=== PATIENT | female | born 1960 | race Caucasian/White ===

== ENCOUNTER 2021-05-12 09:21 | Emergency (ER) | payer MEDICAID, SELFPAY ==
[2021-05-12 09:34] VITALS: BP 139/73; PULSE 79; RESP 22; TEMP 36.9; O2SAT 95; BMI 43.5
--- NOTE | 2021-05-12 09:59 | PC.NURSE ---
IFEOMA JAVIER suggested pt go to the ER for her chest pains and soa with pts heart hx. pt declines and states she does not want treated for that.
--- NOTE | 2021-05-12 09:59 | HMH.EDUTC ---
[facility] [place] Clinical Impression: Bronchitis Sinusitis Qualifiers: Sinusitis location: unspecified location Chronicity: unspecified Qualified Code(s): J32.9 - Chronic sinusitis, unspecified Disposition: Home, Self-Care Condition on Discharge: Good Instructions: Sinusitis, Acute Bronchitis, DI for Sinusitis, DI for COVID-19 (Suspected or Confirmed ), Preventing the Spread of Coronavirus Discharge Instructions Additional Instructions: *Monitor Temp, Over the counter Motrin or Tylenol as directed/as needed Tylenol every 4 hours and Motrin every 6 hours (as long as your family doctor has told you that you can take it) for fever or pain. and straight to ER if unable to lower temp less than 101.0 after medication given *Warm salt water gargles may help to soothe the throat *Throat Lozenges *Warm fluids like tea with honey may help to soothe the throat *Sleep elevated *Humidifier/Vaporizer Follow up IMMEDIATELY for new or worsening symptoms or no Noticeable improvement over the next 48-72 hours. 911 for difficulty breathing or swallowing You were tested for today for COVID19 your test result should be back in the next 24-48 hours, you may call to the [facility] to see if your test results are back in the next 48 hours [phone] [facility] hours are 9am-9pm You was given a handout with instructions for Self Quarantine and Self isolation for while you wait on test results and what to do if they are positive If you are positive the Health Dept will be contacting you also Make sure to take your Vitamins Vit. C Vit D and Zinc if you can take them Prescriptions: Doxycycline Monohydrate [Doxycycline [place] 100mg Tab] 100 mg PO Q12 7 Days #14 tab Transmission Status: Received by [id number] Referrals: Provider,Referral, [Primary Care Provider] - As needed Time of Disposition: 10:21 Medical Decision Making - Sharad Inquiry Pt receiving controlled substance: No Sharad was queried for this patient: No Vital Signs: 05/12/21 09:34 05/12/21 10:27 Temperature 98.4 F 98.4 F Temperature Source Oral Pulse Rate 79 Pulse Rate [Left] 79 Respiratory Rate 22 16 Blood Pressure 139/73 Blood Pressure [Right Arm] 139/73 Blood Pressure Mean [Right Arm] 95 02 Sat by Pulse Oximetry 95 Medical Decision Narrative: Discussed with patient about having pain in her chest area and feeling dizzy 3 days ago and recommended transfer to the ED for further work up and evaluation and patient declined states that pain only happened when she took a deep breath and didnt feel like her heart Patient educated on risks and even and patient still declined transfer and CX[place] [facility] [place] - General Stated complaint: covid symptoms Time Seen by Provider: 05/12/21 09:59 Mode of Arrival: Ambulatory Source of Information: Patient Limitations: No Limitations Description of Symptoms (Recalled from Triage Doc. by RN): pt states she got up a few days ago and became dizzy and had chest pain. pt c/o FERNANDEZ, cough, body aches, sinus pressure, nausea and soa ever since. pt states she is having pressure in her upper chest when she breathes and in her lungs. HEENT Symptoms (Recalled from RN notes): Yes (sinus pressure and FERNANDEZ) Resp Symptoms (Recalled from RN notes): Yes (cough, lung pain and soa) Skin Symptoms (Recalled from RN notes): No MS Symptoms (Recalled from RN notes): No Functional Status (Recalled from RN notes): myalgia - History of Present Illness Provider Complaint: Patient states that she had some pain in her chest a couple days ago when she took a deep breath and felt a little dizzy State that since then she has started to have headache, cough, sinus congestion and pressure and felt SOA at times after coughing States that she was concerned with COVID and wanted to get tested - Related Data Previous Rx's Medication Instructions Recorded Doxycycline Monohydrate 100 mg PO Q12 7 Days #14 tab 05/12/21 [Doxycycline [place] 100mg Tab]
[2021-05-12 10:27] VITALS: BP 139/73; PULSE 79; RESP 16; TEMP 36.9
== END 2021-05-12 10:33 | disposition home or self-care (01) ==
PROVIDERS: Emergency Provider Nurse Practitioner
DX: U07.1 COVID-19 (principal); J32.9 Chronic sinusitis, unspecified
CPT/HCPCS: 99202; C9803; G0463; U0003; U0005

== ENCOUNTER 2021-05-17 12:49 | Emergency (ER) | payer MEDICAID, SELFPAY ==
[2021-05-17] VITALS (11 sets, daily range): BP systolic 137–181; BP diastolic 61–107; PULSE 75–91; RESP 17–25; TEMP 36.7; O2SAT 92–97; BMI 42.5
--- NOTE | 2021-05-17 12:50 | PC.NURSE ---
UPON ARRIVAL TO THE ED PT PRESENTED WITH O2 SAT OF 88% RA. PT DENIES HOME O2 USE
--- NOTE | 2021-05-17 12:56 | XR_ITS ---
PROCEDURE: XR CHEST PORTABLE CLINICAL HISTORY: sob Covid19 positive COMPARISON: No exams were available for comparison FINDINGS: The cardiomediastinal silhouette and pulmonary vascularity are within normal limits. Increased markings in the central aspect of the right upper lobe suspicious for patchy area of pneumonia. No acute bony abnormalities. IMPRESSION: Faint infiltrate in the right upper lobe Dictated by: Damaso Marie MD 05/17/2021 13:16 Damaso Marie MD in [place] 05/17/2021 13:16
--- NOTE | 2021-05-17 12:59 | HMH.EDGENADL ---
ED Disposition Clinical Impression: COVID-19 Respiratory failure Qualifiers: Chronicity: acute Respiratory failure complication: hypoxia Qualified Code(s): J96.01 - Acute respiratory failure with hypoxia Vomiting Qualifiers: Vomiting type: unspecified Vomiting Intractability: non-intractable Nausea presence: without nausea Qualified Code(s): R11.11 - Vomiting without nausea Disposition: Admitted As Inpatient Condition on Discharge: Serious Referrals: Provider,Referral, MD [Primary Care Provider] - Time of Disposition: 14:02 - Critical Care Critical Care Time: Yes Attestation: On 05/17/21, the high probability of a clinically significant, sudden or life threatening deterioration of the following system(s) required my full and direct attention, intervention and personal management. The time I documented below is in addition to time spent performing reported procedures but includes the following listed in this critical care notation. Total Critical Care Time: 30 Vital system(s) involved:: Respiratory Failure My critical care processes included: Assessment & monitoring of V/S, Initial and Re-exams, Data Review/Interpretation, Coordinating Care, Medication Orders and management, Documentation Medical Decision Making - Medical Records Medical records reviewed: Yes: I reviewed the patient's medical records. - Sharad Inquiry Pt receiving controlled substance: No - Lab Data Lab Results 05/17/21 12:58: WBC 5.8, RBC 5.32, Hgb 15.3, Hct 48.7 H, MCV 91.6, MCH 28.7, MCHC 31.3 L, RDW 14.2, Plt Count 279, MPV 9.4, Neut % (Auto) 66.2, Lymph % (Auto) 23.0, [place] % (Auto) 9.0, Eos % (Auto) 0.1, Baso % (Auto) 1.7, Neut # (Auto) 3.9, Lymph # (Auto) 1.4, [place] # (Auto) 0.5, Eos # (Auto) 0.0, Baso # (Auto) 0.1 05/17/21 12:58: Sodium 135 L, Potassium 4.0, Chloride 99, Carbon Dioxide 28, Anion Gap 12.0, BUN 14, Creatinine 0.70, Estimated Creat Clear 48, Estimated GFR 85, Est GFR ( Amer) 103, Glucose 256 H, Calcium 8.8, Total Bilirubin 0.2, AST 49 H, ALT 37, Alkaline Phosphatase 108, Total Protein 7.2, Albumin 3.6, Globulin 3.6 H, Albumin/Globulin Ratio 1.0 L 05/17/21 12:58: Lactate 1.4 Result diagrams: 05/17/21 12:58 05/17/21 12:58 Orders (Tests/Meds): ED MEDICATIONS Discontinued Medications Generic Name Dose Route Start Last Admin Trade Name Kianq PRN Reason Stop Dose Admin Dexamethasone Sodium Phosphate 8 mg 05/17/21 12:58 05/17/21 13:15 Dexamethasone 4mg/Ml 1ml Vial IV 05/17/21 12:59 8 mg ONCE ONE Administration Sodium Chloride 1,000 mls @ 999 mls/hr 05/17/21 13:00 05/17/21 13:16 Sod Chlor 0.9% 1000ml Bag IV 05/17/21 14:00 999 mls/hr .Q1H1M SUHAIL Administration Ondansetron HCl 4 mg 05/17/21 12:58 05/17/21 13:16 Ondansetron 4mg/2ml Vial IV 05/17/21 12:59 4 mg ONCE ONE Administration ORDERS Category Date Time Status CT angio chest PE protocol Stat Cat Scan 05/17/21 13:59 Ordered Consult to Pulmonology [CONS] Stat Cons 05/17/21 14:01 Ordered XR chest 2V Routine Exams 05/18/21 00:01 Ordered Basic Metabolic Panel AMLAB Lab 05/18/21 06:00 Ordered Complete Blood Count Auto Diff AMLAB Lab 05/18/21 06:00 Ordered Blood Culture Stat Micro 05/17/21 12:58 Received Medical Decision Narrative: In summary this is a 60-year-old female presenting to the emergency department with malaise, nausea, shortness of breath. Patient hypoxic on arrival with oxygen saturation of 86% on room air. Other vital signs are stable. She appears ill, to feel unwell. She is nontoxic. Conversational. Most likely diagnosis is respiratory failure from Covid pneumonia. Cannot exclude anemia, dehydration, ACS. Will obtain CBC, BMP, chest x-ray, EKG, troponin profile. Patient given 8 mg IV dexamethasone. Initial laboratory results are reassuring. No renal failure. No anemia. X-ray shows a right upper opacity, likely due to Covid On reassessment, patient doing somewhat better, but persistently r
[2021-05-17 13:20] LABS: Basophils # 0.1 K/mm3 (0-0.2); Basophils % 1.7 % (0.1-2.0); Eosinophils % 0.1 % (0.1-12.0); Hematocrit 48.7 % (37.0-47.0); Hemoglobin 15.3 g/dL (12.2-16.2); Lymphocytes # 1.4 K/mm3 (0.7-4.5); Mean Corpuscular HGB Conc 31.3 g/dL (31.8-35.4); Mean Corpuscular Hemoglobin 28.7 pg (27.0-31.2); Mean Corpuscular Volume 91.6 fl (81-99); Mean Platelet Volume 9.4 fl (7.4-10.4); Monocytes # 0.5 K/mm3 (0.1-1.0); Neutrophils # 3.9 K/mm3 (1.8-7.8); Neutrophils % 66.2 % (37.0-80.0); Platelet Count 279 K/mm3 (142-424); Red Blood Count 5.32 M/mm3 (4.20-5.40); Red Cell Distribution Width 14.2 % (11.5-17.5); White Blood Count 5.8 K/mm3 (4.8-10.8)
[2021-05-17 13:26] LABS: Chloride 99 mmol/L (98-107); Sodium 135 mmol/L (136-145)
--- NOTE | 2021-05-17 13:26 | ECG_ITS ---
APPROVED REPORT Exam: Resting ECG HR:81 bpm ECG Measurements Heart Rate 81 AXES ID 150 P 48 QRSd 96 QRS 28 QT 386 T 34 QTc 448 Conclusion Normal sinus rhythm Nonspecific T wave abnormality Abnormal ECG Electronically signed by : Aleksey Cali MD 05/18/2021 11:19:04
[2021-05-17 13:29] LABS: Alanine Aminotransferase 37 U/L (12-78); Albumin Level 3.6 g/dl (3.5-5.0); Alkaline Phosphatase 108 U/L (38-126); Aspartate Amino Transferase 49 U/L (14-36); Bilirubin,Total 0.2 mg/dl (0.2-1.3); Blood Urea Nitrogen 14 mg/dl (7-17); Calcium 8.8 mg/dl (8.4-10.2); Carbon Dioxide 28 mmol/L (22.0-30.0); Creatinine Clearance Estimated 48 mL/min (50-200); Estimated Glomerular Filt Rate 85 ml/min (>60); GFR (African American) 103 ML/MIN (>60); Globulin 3.6 g/dL (1.3-3.2); Glucose 256 mg/dl (74-100); Total Protein,Serum 7.2 g/dl (6.3-8.2)
[2021-05-17 13:30] LABS: Lactic Acid 1.4 mmol/L (0.7-2.1)
--- NOTE | 2021-05-17 13:57 | PC.NURSE ---
NELLIE OQUENDO spoke with Dr. Kim at this time
--- NOTE | 2021-05-17 13:59 | CT_ITS ---
PROCEDURE: CT ANGIO CHEST PE PROTOCOL CLINCIAL INDICATION: hypoxia, covid COMPARISON: No exams were available for comparison TECHNIQUE: IV Contrast: 70ML Isovue 370 Axial images obtained with sagittal and coronal reformats. All CT scans at the facility use one or more dose reduction, viz: automated exposure control, ma/kV adjustment per patient size (including targeted exams where dose is matched to indication, i.e. head), or iterative reconstruction technique. FINDINGS: HEART AND MEDIASTINAL STRUCTURES: The thyroid gland is enlarged. There is a partially peripherally calcified nodule in the right lobe at 12 mm. A 14 mm hypodensity is present in the left lobe. A nodule or nodular enlargement the isthmus measuring 3.4 cm is noted with some coarse calcification. Peripheral pulmonary artery opacification is somewhat less than optimal. No central or large pulmonary emboli are evident. No evidence of aortic aneurysm or dissection. There are scattered small mediastinal lymph nodes LUNGS AND PLEURAL SPACES: Multifocal ground-glass opacities are present in both upper and lower lobes consistent with Covid19 pneumonia. No evidence of pneumothorax. No pleural effusions. BONY STRUCTURES: Multilevel degenerative disc disease. UPPER ABDOMEN: Gallbladder is distended. Fatty liver. ADDITIONAL FINDINGS: No other significant abnormalities. IMPRESSION: 1. No evidence of pulmonary embolus. 2. Findings compatible with Covid19 pneumonia with multifocal bilateral ground-glass infiltrates. 3. Enlarged thyroid gland with multiple nodules. Ultrasound of thyroid may provide further evaluation Dictated by: Damaso Marie MD 05/17/2021 15:01 Damaso Marie MD in [place] 05/17/2021 15:01
--- NOTE | 2021-05-17 14:11 | XR_ITS ---
PROCEDURE: XR CHEST PORTABLE CLINICAL HISTORY: covid COMPARISON: CR XR CHEST PORTABLE from 05/17/2021 FINDINGS: The cardiomediastinal silhouette and pulmonary vascularity are within normal limits. Patchy right perihilar infiltrate once again noted. No acute bony abnormalities. IMPRESSION: Faint right perihilar infiltrate otherwise negative Dictated by: Damaso Marie MD 05/17/2021 15:03 Damaso Marie MD in [place] 05/17/2021 15:03
--- NOTE | 2021-05-17 15:11 | HMH.PHAINT ---
MEDICATION RECONCILIATION COMPLETE PER PATIENT AND PHARMACY
--- NOTE | 2021-05-17 15:23 | PC.NURSE ---
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
== END 2021-05-17 19:17 | disposition home or self-care (01) ==
LOC: ER 14:03 → 2ND 15:00 → ER 18:36
PROVIDERS: Emergency Provider Emergency Medicine
DX: J96.01 Acute respiratory failure with hypoxia (principal); U07.1 COVID-19
CPT/HCPCS: 71045; 71275; 80053; 83605; 85025; 87040; 93005; 96375; 99283; J2405; Q9967

== ENCOUNTER → 2021-05-25 14:43 | Outpatient (CLI) | payer MEDICAID, SELFPAY | PROVIDERS: Visit Provider Nurse Practitioner | DX: Z20.822 Contact with and (suspected) exposure to COVID-19 (principal); U07.1 COVID-19 | CPT/HCPCS: C9803; U0003; U0005 ==

== ENCOUNTER → 2021-06-22 15:03 | Outpatient (CLI) | payer MEDICAID, SELFPAY ==
[2021-06-22 15:42] LABS: Alanine Aminotransferase 18 U/L (12-78); Albumin Level 3.4 g/dl (3.5-5.0); Alkaline Phosphatase 134 U/L (38-126); Anion Gap 13.3 mEq/L (5-15); Aspartate Amino Transferase 27 U/L (14-36); Bilirubin,Total 0.3 mg/dl (0.2-1.3); Blood Urea Nitrogen 13 mg/dl (7-17); Calcium 9.2 mg/dl (8.4-10.2); Carbon Dioxide 33 mmol/L (22.0-30.0); Chloride 94 mmol/L (98-107); Cholesterol 236 mg/dl (140-200); Estimated Glomerular Filt Rate 101 ml/min (>60); GFR (African American) 123 ML/MIN (>60); Globulin 3.3 g/dL (1.3-3.2); HDL Cholesterol 59 mg/dl (40-60); Potassium 4.3 mmoL/L (3.5-5.1); Sodium 136 mmol/L (136-145); Total Protein,Serum 6.7 g/dl (6.3-8.2); Triglycerides 318 mg/dl (30-150); VLDL Cholesterol 64 mg/dL (0-40)
[2021-06-22 15:53] LABS: Direct LDL Cholesterol 120.62 mg/dL (100-129)
[2021-06-22 15:54] LABS: Microalbumin > 190.000 mg/L (0-16.7)
[2021-06-22 15:58] LABS: T4 (Thyroxine) 9.3 ug/dl (5.53-11.0)
[2021-06-22 16:03] LABS: 25-OH Vitamin D, Total < 12.8 ng/mL (30-100)
[2021-06-22 16:11] LABS: Glucose 519 mg/dl (74-100)
[2021-06-22 16:12] LABS: Thyroid Stimulating Hormone 2.09 uIU/mL (0.465-4.68)
[2021-06-24 11:12] LABS: C-Peptide 6.9 ng/mL (1.1-4.4)
== END ==
PROVIDERS: Visit Provider Nurse Practitioner Family
DX: Z00.00 Encounter for general adult medical examination without abnormal findings (principal); E11.9 Type 2 diabetes mellitus without complications; I25.2 Old myocardial infarction; N39.0 Urinary tract infection, site not specified; E55.9 Vitamin D deficiency, unspecified; Z79.4 Long term (current) use of insulin
CPT/HCPCS: 80053; 80061; 82043; 82306; 84436; 84443; 84681; 87086

== ENCOUNTER → 2021-07-12 15:48 | Outpatient (CLI) | payer MEDICAID, SELFPAY ==
--- NOTE | 2021-07-12 15:49 | MM_ITS ---
PROCEDURE INFORMATION: Exam: Bilateral Screening 3D Mammography Exam date and time: 07/12/2021 3:49 PM Age: 60 years old Clinical indication: Screening mammogram TECHNIQUE: Imaging protocol: Bilateral screening tomosynthesis and 2D mammography including computer-aided detection (CAD) when performed. COMPARISON: SCREENING MAMM DIGITAL 11/29/2011 12:49 PM FINDINGS: MAMMOGRAPHY: Breast composition: There are scattered areas of fibroglandular density. Mass: None. Architectural distortion: No new or suspicious architectural distortion. Calcifications: No new or suspicious calcifications are present Asymmetric density: No new or suspicious asymmetric density is present Skin thickening: None. Axillary adenopathy: None. IMPRESSION: No mammographic evidence of malignancy. Recommend annual screening mammography unless otherwise clinically indicated. ASSESSMENT: BI-RADS category 1: Negative
== END ==
PROVIDERS: PCP Nurse Practitioner Family; Visit Provider Nurse Practitioner Family
DX: Z12.31 Encounter for screening mammogram for malignant neoplasm of breast (principal)
CPT/HCPCS: 77063; 77067

== ENCOUNTER 2021-09-07 16:09 | Inpatient (IN) | payer MEDICAID, SELFPAY ==
[2021-09-07] VITALS (20 sets, daily range): BP systolic 162–193; BP diastolic 74–96; PULSE 64–78; RESP 17–25; TEMP 36.8–37.2; O2SAT 81–98; BMI 42.5
--- NOTE | 2021-09-07 17:22 | XR_ITS ---
PROCEDURE INFORMATION: Exam: XR Right Foot Exam date and time: 09/07/2021 5:22 PM Age: 60 years old Clinical indication: Other: Necrosis; Additional info: Necrosis of 2nd toe TECHNIQUE: Imaging protocol: XR Right foot. Views: 3 or more views. COMPARISON: No relevant prior studies available. FINDINGS: Bones/joints: Postsurgical changes compatible with amputation of the 3rd toe. Small enthesophytes involving the calcaneus at the plantar fascia insertion. Soft tissues: Significant soft tissue swelling of the 2nd toe and forefoot with osteolysis of the 2nd digit tuft. IMPRESSION: Significant soft tissue swelling of the 2nd toe and forefoot with osteolysis of the 2nd digit tuft. Findings suspicious for osteomyelitis.
[2021-09-07 18:26] LABS: MANUAL DIFFERENTIAL MANUAL DIFFERENTIAL (MANUAL DIFF)
[2021-09-07 18:32] LABS: Basophils # 0.3 K/mm3 (0-0.2); Basophils % 2.1 % (0.1-2.0); Eosinophils # 0.5 K/mm3 (0.0-0.4); Hematocrit 44.7 % (37.0-47.0); Lymphocytes # 2.8 K/mm3 (0.7-4.5); Lymphocytes % 23.4 % (10-50); Mean Corpuscular HGB Conc 31.4 g/dL (31.8-35.4); Mean Corpuscular Hemoglobin 28.1 pg (27.0-31.2); Mean Corpuscular Volume 89.7 fl (81-99); Mean Platelet Volume 8.2 fl (7.4-10.4); Monocytes # 0.7 K/mm3 (0.1-1.0); Monocytes % 5.6 % (1.7-9.3); Neutrophils # 7.7 K/mm3 (1.8-7.8); Neutrophils % 64.9 % (37.0-80.0); Platelet Count 499 K/mm3 (142-424); Red Blood Count 4.98 M/mm3 (4.20-5.40); White Blood Count 11.9 K/mm3 (4.8-10.8)
[2021-09-07 18:48] LABS: Eosinophils % 5 % (0-3); Lymphocytes % 24 % (10-50); Monocytes % 1 % (2-9); Neutrophils % 70 % (42-76); Platelet Estimate Slight Increase; RBC Morphology Normal; Total Cells Counted 100
--- NOTE | 2021-09-07 18:48 | PC.NURSE ---
spoke with Dr. Contreras
--- NOTE | 2021-09-07 18:48 | HMH.EDGENADL ---
ED Disposition Clinical Impression: COVID-19 Osteomyelitis Qualifiers: Osteomyelitis type: other acute Osteomyelitis location: foot Laterality: right Qualified Code(s): M86.171 - Other acute osteomyelitis, right ankle and foot Disposition: Admitted As Inpatient Condition on Discharge: Fair - Critical Care Critical Care Time: No Attestation: On 09/07/21, the high probability of a clinically significant, sudden or life threatening deterioration of the following system(s) required my full and direct attention, intervention and personal management. The time I documented below is in addition to time spent performing reported procedures but includes the following listed in this critical care notation. Medical Decision Making - Medical Records Medical records reviewed: Yes: I reviewed the patient's medical records. - Sharad Inquiry Pt receiving controlled substance: No Vital Signs: 09/07/21 16:12 09/07/21 18:00 09/07/21 18:30 Temperature 99.0 F Temperature Source Oral Pulse Rate 78 74 Pulse Rate [Left Radial] 78 Respiratory Rate 17 18 18 Blood Pressure 170/74 H 178/81 H Blood Pressure [Right Arm] 193/96 H Blood Pressure Mean 106 111 Blood Pressure Mean [Right Arm] 128 02 Sat by Pulse Oximetry 97 97 96 Oxygen Delivery Method Room Air 09/07/21 19:00 09/07/21 19:30 Temperature Temperature Source Pulse Rate 76 67 Pulse Rate [Left Radial] Respiratory Rate 18 18 Blood Pressure 172/87 H 173/82 H Blood Pressure [Right Arm] Blood Pressure Mean 107 110 Blood Pressure Mean [Right Arm] 02 Sat by Pulse Oximetry 98 97 Oxygen Delivery Method - Lab Data Lab results reviewed: Yes: I reviewed the patient's lab results. Lab Results 09/07/21 18:21: WBC 11.9 H, RBC 4.98, Hgb 14.0, Hct 44.7, MCV 89.7, MCH 28.1, MCHC 31.4 L, RDW 15.0, Plt Count 499 H, MPV 8.2, Neut % (Auto) 64.9, Lymph % (Auto) 23.4, [place] % (Auto) 5.6, Eos % (Auto) 4.0, Baso % (Auto) 2.1 H, Neut # (Auto) 7.7, Lymph # (Auto) 2.8, [place] # (Auto) 0.7, Eos # (Auto) 0.5 H, Baso # (Auto) 0.3 H, Total Counted 100, Neutrophils % (Manual) 70, Lymphocytes % (Manual) 24, Monocytes % (Manual) 1 L, Eosinophils % (Manual) 5 H, Platelet Estimate Slight increase, RBC Morphology Normal, ESR 29 09/07/21 18:21: Sodium 142, Potassium 3.6, Chloride 103, Carbon Dioxide 32 H, Anion Gap 10.6, BUN 11, Creatinine 0.70, Estimated Creat Clear 48, Estimated GFR 85, Est GFR ( Amer) 103, Glucose 116 H, Calcium 8.6, Total Bilirubin 0.2, AST 29, ALT 15, Alkaline Phosphatase 104, C-Reactive Protein 26.9 H, Total Protein 7.7, Albumin 3.6, Globulin 4.1 H, Albumin/Globulin Ratio 0.9 L 09/07/21 18:21: PT 10.7, INR 0.94 09/07/21 18:50: SARS-CoV-2 (PCR) Detected A, Influenza A Untype (PCR) Not detected, Influenza Type B (PCR) Not detected Result diagrams: 09/07/21 18:21 09/07/21 18:21 Orders (Tests/Meds): ED MEDICATIONS Generic Name Dose Route Start Last Admin Trade Name Freq PRN Reason Stop Dose Admin Ceftriaxone Sodium 1 gm/ 50 mls @ 100 mls/hr 09/07/21 18:15 09/07/21 18:34 Sodium Chloride IV 09/21/21 18:14 100 mls/hr Q24H SUHAIL Administration ORDERS Category Date Time Status CT foot RT wo con Stat Cat Scan 09/07/21 20:15 Ordered Blood Culture Stat Micro 09/07/21 18:21 Received ECG Request by /Ben Stat Y 09/07/21 19:42 Ordered Medical Decision Narrative: Patient is a 60-year-old female present emergency department chief complaint of swelling and redness of her right lower extremity. Patient also has necrotic toe. Differential diagnosis in this patient includes osteomyelitis, diabetic ulcer, cellulitis, abscess among others. Given this plan to order 3 of the affected extremity. X-ray shows concern for osteomyelitis, given this we will order CBC, CMP, ESR, CRP. Discussed patient with Dr. 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 Start patient on broad-spectrum antibio
[2021-09-07 18:55] LABS: Influenza A, PCR Not Detected (NotDetected); Influenza B, PCR Not Detected (NotDetected)
[2021-09-07 18:55] LABS: Erythrocyte Sedimentation Rate 29 mm/hr (0-30)
[2021-09-07 18:58] LABS: Chloride 103 mmol/L (98-107); Potassium 3.6 mmoL/L (3.5-5.1); Sodium 142 mmol/L (136-145)
[2021-09-07 19:01] LABS: Alanine Aminotransferase 15 U/L (12-78); Albumin Level 3.6 g/dl (3.5-5.0); Albumin/Globulin Ratio 0.9 (1.1-1.8); Alkaline Phosphatase 104 U/L (38-126); Anion Gap 10.6 mEq/L (5-15); Aspartate Amino Transferase 29 U/L (14-36); Bilirubin,Total 0.2 mg/dl (0.2-1.3); Blood Urea Nitrogen 11 mg/dl (7-17); Carbon Dioxide 32 mmol/L (22.0-30.0); Creatinine Clearance Estimated 48 mL/min (50-200); Estimated Glomerular Filt Rate 85 ml/min (>60); GFR (African American) 103 ML/MIN (>60); Globulin 4.1 g/dL (1.3-3.2); Total Protein,Serum 7.7 g/dl (6.3-8.2)
[2021-09-07 19:02] LABS: Calcium 8.6 mg/dl (8.4-10.2); Glucose 116 mg/dl (74-100)
[2021-09-07 19:07] LABS: C-Reactive Protein 26.9 mg/L (0-4)
[2021-09-07 19:30] LABS: Coronavirus 19, PCR Detected (NotDetected)
--- NOTE | 2021-09-07 19:42 | XR_ITS ---
PROCEDURE INFORMATION: Exam: XR Chest Exam date and time: 09/07/2021 7:42 PM Age: 60 years old Clinical indication: Condition or disease; Other: Covid positive. ; Patient HX: Covid positive, possible foot surgery soon. ; Additional info: Surgical planning TECHNIQUE: Imaging protocol: XR of the chest. Views: 1 view. COMPARISON: CR XR CHEST PORTABLE 05/17/2021 2:17 PM FINDINGS: Lungs: Mild diffuse increase opacity throughout the left hemithorax compared to the right. Pleural spaces: No pneumothorax. Heart/Mediastinum: No cardiomegaly. Bones/joints: No acute abnormality. IMPRESSION: Mild diffuse increase opacity throughout the left hemithorax compared to the right which is nonspecific and may be secondary to aeration or vascular flow. Consider cross-sectional imaging for further evaluation.
[2021-09-07 19:55] LABS: INR 0.94 (0.9-1.1); Prothrombin Time 10.7 seconds (10.1-12.5)
--- NOTE | 2021-09-07 20:15 | CT_ITS ---
PROCEDURE INFORMATION: Exam: CT Right Lower Extremity Without Contrast, Foot Exam date and time: 09/07/2021 8:15 PM Age: 60 years old Clinical indication: Pain; Foot; Right; Additional info: Foot pain TECHNIQUE: Imaging protocol: CT of the Right lower extremity without contrast was performed. Exam focused on the foot. Radiation optimization: All CT scans at this facility use at least one of these dose optimization techniques: automated exposure control; mA and/or kV adjustment per patient size (includes targeted exams where dose is matched to clinical indication); or iterative reconstruction. COMPARISON: CR XR FOOT RT MIN 3V 09/07/2021 5:41 PM FINDINGS: Bones/joints: Degenerative changes of the midfoot. Soft tissues: Soft tissue defect involving the distal aspect of the 2nd ray with subcutaneous gas and stranding and osteolysis and fragmentation of the distal phalanx. Diffuse subcutaneous stranding. IMPRESSION: Soft tissue defect involving the distal aspect of the 2nd ray with subcutaneous gas and stranding and osteolysis and fragmentation of the distal phalanx. Differential would include trauma or infection with gas-forming organism and osteomyelitis.
--- NOTE | 2021-09-07 20:34 | PC.NURSE ---
shabana from night [employer] called for vanc dosing [phone]
--- NOTE | 2021-09-07 20:55 | HMH.HP ---
*Admission Date: 09/07/21 *Chief complaint: infected foot *History of present illness: this patient presented to the ed - a 60-year-old female present emergency department chief complaint of foot pain on her second toe. Patient states that she has had 2 days of increased pain. She has had an erythematous red and swollen foot. She states that her daughter later this evening and was concerned about it given that she has had increased swelling and increased pain. She does state that she has diabetes and has some impaired sensation in it, does have a history of removal of third toe. She has some mild pain in her right ankle as well as right foot, there is denying fevers, chills, shortness of air, nausea, vomiting. pt with prob osteomyelitis and was admitted for iv abx and podiatry consult [facility] History I have reviewed the patient's past medical history: Yes Medical History: Reports:: Diabetes Mellitus Type 2, Hypertension, Myocardial Infarction *Have you ever received a pneumonia vaccine?: No *Have you received a flu vaccine this season?: No Other Surgeries: Yes: Colonoscopy, , Tubal Ligation - *Social History Smoking Status: Former smoker Alcohol Intake: never Substance Use Type: denies use *Occupational Status:: unemployed Housing: house Household Members: family *Travel in the last 8 weeks: None Family Hx:: No significant family history Review of Systems - Review of Systems Review of systems:: pertinent systems reviewed and negative unless documented below - Constitutional Reports malaise, Denies fever(s) - Eyes Denies change in vision - ENT Denies sore throat - *Cardiovascular Denies chest pain - *Respiratory Denies cough - *Gastrointestinal Denies abdominal pain - *Genitourinary Denies blood in urine - *Musculoskeletal Reports joint pain, Reports joint swelling - Integumentary/Breasts Reports other (reddness and tender toe) - *Neurologic Denies seizure-like activity - Psychiatric Denies anxiety Meds Home Medications Medication Instructions Recorded Confirmed Type Metoprolol Tartrate [Lopressor 25 mg PO BID 05/17/21 07/01/21 History 25mg tablet] ondansetron HCL [Ondansetron 4mg 4 mg PO Q6 PRN #12 tab 05/17/21 07/01/21 Rx tab*] aspirin 81 mg chewable tablet 81 mg PO DAILY #30 tab 06/22/21 07/01/21 Rx atorvastatin 40 mg tablet 40 mg PO HS #30 tab 06/22/21 07/01/21 Rx clopidogrel 75 mg tablet 75 mg PO DAILY #30 tab 06/22/21 07/01/21 Rx insulin glargine 100 unit/mL (3 20 unit SQ BID #15 ml 06/22/21 07/01/21 Rx mL) subcutaneous pen lisinopril 5 mg tablet 5 mg PO DAILY #30 tab 07/01/21 07/01/21 Rx ondansetron HCl 4 mg tablet 4 mg PO TID PRN 5 Days #14 tab 07/01/21 07/01/21 Rx metformin 500 mg tablet See Rx Instructions .ROUTE 07/29/21 Rx .COMPLEX #120 tab sertraline 50 mg tablet See Rx Instructions .ROUTE 07/29/21 Rx .COMPLEX #30 tab Allergies Allergy/AdvReac Type Severity Reaction Status Date / Time Penicillins Allergy Verified 07/01/21 15:29 Exam Vital signs and Labs for Last 24 Hours: Temp Pulse Resp BP Pulse Ox 99.0 F 67 18 173/82 H 97 09/07/21 16:12 09/07/21 19:30 09/07/21 19:30 09/07/21 19:30 09/07/21 19:30 Laboratory Results - last 24 hr 09/07/21 18:21: WBC 11.9 H, RBC 4.98, Hgb 14.0, Hct 44.7, MCV 89.7, MCH 28.1, MCHC 31.4 L, RDW 15.0, Plt Count 499 H, MPV 8.2, Neut % (Auto) 64.9, Lymph % (Auto) 23.4, [place] % (Auto) 5.6, Eos % (Auto) 4.0, Baso % (Auto) 2.1 H, Neut # (Auto) 7.7, Lymph # (Auto) 2.8, [place] # (Auto) 0.7, Eos # (Auto) 0.5 H, Baso # (Auto) 0.3 H, Total Counted 100, Neutrophils % (Manual) 70, Lymphocytes % (Manual) 24, Monocytes % (Manual) 1 L, Eosinophils % (Manual) 5 H, Platelet Estimate Slight increase, RBC Morphology Normal, ESR 29 09/07/21 18:21: Sodium 142, Potassium 3.6, Chloride 103, Carbon Dioxide 32 H, Anion Gap 10.6, BUN 11, Creatinine 0.70, Estimated Creat Clear 48, Estimated GFR 85, Est GFR ( Amer
--- NOTE | 2021-09-07 23:04 | PC.NURSE ---
patient up to floor via wheelchair @ this time
[2021-09-08] VITALS (22 sets, daily range): BP systolic 137–168; BP diastolic 61–101; PULSE 66–93; RESP 14–20; TEMP 36.5–37; O2SAT 91–100; BMI 42.5
[2021-09-08 05:36] LABS: POC Glucose,Bedside 109 (70-110)
--- NOTE | 2021-09-08 07:11 | P.CONPHA_ITS ---
[facility] Pharmacy VTE Monitoring - Patient Demographics Admission date: 09/08/21 Report Date: 09/08/21 Time: 07:11 Allergies/Adverse Reactions: Patient Allergies Penicillins Allergy (Verified 07/01/21 15:29) Height: 1.6 m Weight: 108.9 kg Patient Problems: Current Active Problems Osteomyelitis (Acute) Obesity (Acute) SIRS (systemic inflammatory response syndrome) (Acute) Type 2 diabetes mellitus (Acute) COVID-19 (Acute) - VTE Risk Labs: VTE Related Lab Results Hgb 14.0 g/dL (12.2-16.2) 09/07/21 18:21 Hct 44.7 % (37.0-47.0) 09/07/21 18:21 Plt Count 499 K/mm3 (142-424) H 09/07/21 18:21 PT 10.7 seconds (10.1-12.5) 09/07/21 18:21 INR 0.94 (0.9-1.1) 09/07/21 18:21 BUN 11 mg/dl (7-17) 09/07/21 18:21 Creatinine 0.70 mg/dl (0.52-1.04) 09/07/21 18:21 Estimated Creat Clear 48 mL/min (50-200) 09/07/21 18:21 Was VTE Risk Assessment Performed: Yes VTE Score: 6 VTE Risk Level: Moderate Risk Clinical Trial Participant: No - Prophylaxis VTE Prophylaxis Ordered?: Yes Types of VTE Prophylaxis: TEDS Knee High
[2021-09-08 07:42] LABS: Basophils # 0.1 K/mm3 (0-0.2); Basophils % 1.1 % (0.1-2.0); Eosinophils # 0.6 K/mm3 (0.0-0.4); Eosinophils % 5.2 % (0.1-12.0); Hematocrit 39.2 % (37.0-47.0); Lymphocytes # 2.7 K/mm3 (0.7-4.5); Lymphocytes % 24.2 % (10-50); Mean Corpuscular Volume 90.3 fl (81-99); Mean Platelet Volume 8.3 fl (7.4-10.4); Monocytes # 0.8 K/mm3 (0.1-1.0); Monocytes % 7.5 % (1.7-9.3); Neutrophils # 6.8 K/mm3 (1.8-7.8); Neutrophils % 62.2 % (37.0-80.0); Platelet Count 407 K/mm3 (142-424); Red Blood Count 4.34 M/mm3 (4.20-5.40)
[2021-09-08 07:50] LABS: Anion Gap 5.4 mEq/L (5-15); Blood Urea Nitrogen 10 mg/dl (7-17); Calcium 8.4 mg/dl (8.4-10.2); Carbon Dioxide 32 mmol/L (22.0-30.0); Chloride 104 mmol/L (98-107); Creatinine Clearance Estimated 48 mL/min (50-200); Estimated Glomerular Filt Rate 85 ml/min (>60); GFR (African American) 103 ML/MIN (>60); Glucose 118 mg/dl (74-100); Potassium 3.4 mmoL/L (3.5-5.1); Sodium 138 mmol/L (136-145)
--- NOTE | 2021-09-08 07:50 | HMH.PHAINT ---
verified home medication list with outpatient pharmacy
--- NOTE | 2021-09-08 08:11 | HMH.PHACONS ---
- Pharmacy Consult Date: 09/08/21 Time: 08:12 Referring provider: DR. TORRES Reason for Consult:: VANCOMYCIN DOSING Allergies and ADEs:: Allergies Allergy/AdvReac Type Severity Reaction Status Date / Time Penicillins Allergy Verified 07/01/21 15:29 Home Medications:: Home Medications Medication Instructions Recorded Confirmed Type Metoprolol Tartrate [Lopressor 25 mg PO BID 05/17/21 09/08/21 History 25mg tablet] ondansetron HCL [Ondansetron 4mg 4 mg PO Q6 PRN #12 tab 05/17/21 09/07/21 Rx tab*] clopidogrel 75 mg tablet 75 mg PO DAILY #30 tab 06/22/21 09/08/21 Rx insulin glargine 100 unit/mL (3 20 unit SQ BID #15 ml 06/22/21 09/08/21 Rx mL) subcutaneous pen lisinopril 5 mg tablet 5 mg PO DAILY #30 tab 07/01/21 09/08/21 Rx Sertraline HCl [Zoloft] 50 mg PO DAILY 09/07/21 09/08/21 History Aspirin 81 mg PO DAILY 09/08/21 09/08/21 History Atorvastatin Calcium [Lipitor 40mg 40 mg PO DAILY 09/08/21 09/08/21 History Tab] Metformin HCl 1,000 mg PO BID 09/08/21 09/08/21 History Height: 1.6 m Weight: 108.9 kg Laboratory Results:: Laboratory Results - last 24 hr 09/07/21 18:21: WBC 11.9 H, RBC 4.98, Hgb 14.0, Hct 44.7, MCV 89.7, MCH 28.1, MCHC 31.4 L, RDW 15.0, Plt Count 499 H, MPV 8.2, Neut % (Auto) 64.9, Lymph % (Auto) 23.4, Centre % (Auto) 5.6, Eos % (Auto) 4.0, Baso % (Auto) 2.1 H, Neut # (Auto) 7.7, Lymph # (Auto) 2.8, Centre # (Auto) 0.7, Eos # (Auto) 0.5 H, Baso # (Auto) 0.3 H, Total Counted 100, Neutrophils % (Manual) 70, Lymphocytes % (Manual) 24, Monocytes % (Manual) 1 L, Eosinophils % (Manual) 5 H, Platelet Estimate Slight increase, RBC Morphology Normal, ESR 29 09/07/21 18:21: Sodium 142, Potassium 3.6, Chloride 103, Carbon Dioxide 32 H, Anion Gap 10.6, BUN 11, Creatinine 0.70, Estimated Creat Clear 48, Estimated GFR 85, Est GFR ( Amer) 103, Glucose 116 H, Calcium 8.6, Total Bilirubin 0.2, AST 29, ALT 15, Alkaline Phosphatase 104, C-Reactive Protein 26.9 H, Total Protein 7.7, Albumin 3.6, Globulin 4.1 H, Albumin/Globulin Ratio 0.9 L 09/07/21 18:21: PT 10.7, INR 0.94 09/07/21 18:50: SARS-CoV-2 (PCR) Detected A, Influenza A Untype (PCR) Not detected, Influenza Type B (PCR) Not detected 09/08/21 05:22: POC Glucose 109 09/08/21 06:38: WBC 11.0 H, RBC 4.34, Hct 39.2, MCV 90.3, MCH 28.0, MCHC 31.0 L, RDW 15.0, Plt Count 407, MPV 8.3, Neut % (Auto) 62.2, Lymph % (Auto) 24.2, Centre % (Auto) 7.5, Eos % (Auto) 5.2, Baso % (Auto) 1.1, Neut # (Auto) 6.8, Lymph # (Auto) 2.7, Centre # (Auto) 0.8, Eos # (Auto) 0.6 H, Baso # (Auto) 0.1 09/08/21 06:38: Sodium 138, Potassium 3.4 L, Chloride 104, Carbon Dioxide 32 H, Anion Gap 5.4, BUN 10, Creatinine 0.70, Estimated Creat Clear 48, Estimated GFR 85, Est GFR ( Amer) 103, Glucose 118 H, Calcium 8.4 Medical History: Reports:: Coronary Artery Disease, Diabetes Mellitus Type 2, Hyperlipidemia, Hypertension, Myocardial Infarction Denies:: Cancer, Diabetes Mellitus Type 1, MRSA Assessment and Plan (1) Obesity Status: Acute Qualifiers: Obesity type: due to excess calories Obesity classification: adult class 3 (BMI >= 40) Serious obesity comorbidity presence: with serious comorbidity Body mass index: BMI 40.0-44.9 Qualified Code(s): E66.01 - Morbid (severe) obesity due to excess calories; Z68.41 - Body mass index [BMI] 40.0-44.9, adult Category: Medical Code(s): E66.9 - Obesity, unspecified (2) Osteomyelitis Status: Acute Qualifiers: Osteomyelitis type: other acute Osteomyelitis location: foot Laterality: right Qualified Code(s): M86.171 - Other acute osteomyelitis, right ankle and foot Category: Medical Code(s): M86.9 - Osteomyelitis, unspecified (3) Type 2 diabetes mellitus Status: Acute Qualifiers: Diabetes mellitus senior living insulin use: without senior living use Diabetes mellitus complication status: without complication Qualified Code(s): E11.9 - Type 2 diabetes mellitus without complications Category: Medical C
[2021-09-08 08:22] LABS: Hemoglobin 12.6 g/dL (12.2-16.2)
--- NOTE | 2021-09-08 08:27 | PC.WOUNDNOTE ---
Right 2nd toe
--- NOTE | 2021-09-08 08:56 | HMH.ORTHOCON ---
*Admission Date: 09/07/21 <Amisha Noonan - 09/08/21 09:35> *Reason for consult:: Osteomyelitis, diabetic foot <[email or web address] - 09/08/21 09:35> *History of present illness: This patient presented to the ed-a 60-year-old female present emergencydepartment chief complaint of foot pain on her second toe. Patient states that she has has has 2 days of increased pain. She has had an erythematous red and swollen foot. She states that her daughter later this eveningand was concerned about it given that she has had increased swelling and increased pain. She does states that she has diabetes and had some impaired sensation in it, does have a history of removal of third toe. She has some mild pain in her right ankle as well as right foot, there isdenying fevers, chiils, shortness of air, nausea, vomiting. Pt with prob osteomyelitis and was admitted for IV antibiotic and podiatry consult. PODIATRY CONSULT FOR RIGHT FOOT SECOND TOE OSTEOMYELITIS: Patient is a 60-year-old diabetic female who was admitted 09/07/21 for right foot pain on her second toe, osteomyelitis, and IV antibiotic. Podiatry team was consulted to evaluate and treat. Patient currently lying in bed alert and oriented. No acute distress noted. She has tested positive for covid and stated that she is unvaccinated. Patient right foot has localized inflammation, erythema and swelling noted to right second toe. There is mild pain with palpation, brown/serosanguineous drainage noted at site. Wound culture taken. Right second toe nail is black and the wound has callus around it. There is an old and healed right third toe amputation scar noted. Bilateral hallux total nail avulsion well healed. Discussed treatment options for right foot second toe osteomyelitis. Patient is requiring surgical intervention. Consent for right second toe amputation, debridement of non-viable soft tissue and bone obtained. <AlexandreAmisha bryant 09/08/21 10:50> [facility] History Medical History: Reports:: Coronary Artery Disease, Diabetes Mellitus Type 2, Hyperlipidemia, Hypertension, Myocardial Infarction Denies:: Cancer, Diabetes Mellitus Type 1, MRSA <Amisha Noonan 09/08/21 09:35> *Have you ever received a pneumonia vaccine?: No <Amisha Noonan 09/08/21 09:35> *Have you received a flu vaccine this season?: Yes <Kalyani Noonanher 09/08/21 09:35> Other Surgeries: Yes: Cardiac Catheterization, Colonoscopy, Colostomy (has been reversed), , Tubal Ligation <Kalyani Noonanher 09/08/21 09:35> Amputation: Yes <ShaistaAmisha 09/08/21 09:35> Fractures: No <ShaistaAmisha 09/08/21 09:35> - *Social History Last grade of school completed: 11th or 12th <ShaistaAmisha 09/08/21 09:35> Smoking Status: Former smoker <ShaistaAmisha 09/08/21 09:35> Tobacco Type: cigarettes <ShaistaAmisha 09/08/21 09:35> # Packs/Day (cigarettes): 1 <ShaistaAmisha 09/08/21 09:35> #Yrs smoked (if former smoker): 30 <ShaistaAmisha 09/08/21 09:35> Alcohol Intake: never <ShaistaAmisha 09/08/21 09:35> Substance Use Type: denies use <ShaistaAmisha 09/08/21 09:35> *Occupational Status:: disabled <Amisha Noonan 09/08/21 09:35> Housing: house <Kalyani Noonanher 09/08/21 09:35> Household Members: family <Kalyani Noonanher 09/08/21 09:35> *Travel in the last 8 weeks: None <Kalyani Noonanher 09/08/21 09:35> Family Hx:: Adopted <ShaistaAmisha 09/08/21 09:35> Review of Systems - Review of Systems Review of systems:: pertinent systems reviewed and negative unless documented below <Amisha Noonan 09/08/21 12:19> - Constitutional Denies chills <Kalyani Noonanher 09/08/21 12:19> - Eyes Reports requires corrective lenses, Denies change in vision <MwAmisha bryant 09/08/21 12:19> - ENT Denies abnormal hearing <Amisha Noonan 09/08/21 12:19> - *Cardiovascular Denies chest pain <Amisha Noonan 09/08/21 12:19> - *Respiratory Denies shortness of breath <Amisha Noonan
--- NOTE | 2021-09-08 09:17 | HMH.ACPN2 ---
Internal Medicine - PN: Subj *Date: 09/08/21 *Time: 10:54 Interval history: 60-year-old female patient sitting up in bed resting quietly she denies any respiratory distress, chest pain, or uncontrollable pain during the night. Dressing to right foot clean/dry/intact, she will be going down today for a right second toe amputation, debridement of non-viable soft tissue and bone. Exam Vital signs and Labs for Last 24 Hours: Temp Pulse Resp BP Pulse Ox 98.3 F 73 18 142/77 H 97 09/08/21 04:00 09/08/21 04:00 09/08/21 04:00 09/08/21 04:00 09/08/21 04:00 Laboratory Results - last 24 hr 09/07/21 18:21: WBC 11.9 H, RBC 4.98, Hgb 14.0, Hct 44.7, MCV 89.7, MCH 28.1, MCHC 31.4 L, RDW 15.0, Plt Count 499 H, MPV 8.2, Neut % (Auto) 64.9, Lymph % (Auto) 23.4, Trigg % (Auto) 5.6, Eos % (Auto) 4.0, Baso % (Auto) 2.1 H, Neut # (Auto) 7.7, Lymph # (Auto) 2.8, Trigg # (Auto) 0.7, Eos # (Auto) 0.5 H, Baso # (Auto) 0.3 H, Total Counted 100, Neutrophils % (Manual) 70, Lymphocytes % (Manual) 24, Monocytes % (Manual) 1 L, Eosinophils % (Manual) 5 H, Platelet Estimate Slight increase, RBC Morphology Normal, ESR 29 09/07/21 18:21: Sodium 142, Potassium 3.6, Chloride 103, Carbon Dioxide 32 H, Anion Gap 10.6, BUN 11, Creatinine 0.70, Estimated Creat Clear 48, Estimated GFR 85, Est GFR ( Amer) 103, Glucose 116 H, Calcium 8.6, Total Bilirubin 0.2, AST 29, ALT 15, Alkaline Phosphatase 104, C-Reactive Protein 26.9 H, Total Protein 7.7, Albumin 3.6, Globulin 4.1 H, Albumin/Globulin Ratio 0.9 L 09/07/21 18:21: PT 10.7, INR 0.94 09/07/21 18:50: SARS-CoV-2 (PCR) Detected A, Influenza A Untype (PCR) Not detected, Influenza Type B (PCR) Not detected 09/08/21 05:22: POC Glucose 109 09/08/21 06:38: WBC 11.0 H, RBC 4.34, Hgb 12.6, Hct 39.2, MCV 90.3, MCH 28.0, MCHC 31.0 L, RDW 15.0, Plt Count 407, MPV 8.3, Neut % (Auto) 62.2, Lymph % (Auto) 24.2, Trigg % (Auto) 7.5, Eos % (Auto) 5.2, Baso % (Auto) 1.1, Neut # (Auto) 6.8, Lymph # (Auto) 2.7, Trigg # (Auto) 0.8, Eos # (Auto) 0.6 H, Baso # (Auto) 0.1 09/08/21 06:38: Sodium 138, Potassium 3.4 L, Chloride 104, Carbon Dioxide 32 H, Anion Gap 5.4, BUN 10, Creatinine 0.70, Estimated Creat Clear 48, Estimated GFR 85, Est GFR ( Amer) 103, Glucose 118 H, Calcium 8.4 I & O for Last 24 hours: Intake & Output 09/05/21 09/06/21 09/07/21 09/08/21 23:59 23:59 23:59 23:59 Weight 240 lb 240 lb 1.334 oz - Constitutional no acute distress - *Routine HEENT Exam Head: Present: normocephalic Eye: Present: EOMI ENT: Present: mucous membranes moist - *Routine Neck Exam Present: trachea midline. Absent: tracheal deviation - *Routine Respiratory Exam Present: CTA bilaterally. Absent: accessory muscle use - *Routine Cardiovascular Exam Present: RRR - *Routine Abdominal Exam Present: soft, normoactive bowel sounds. Absent: tenderness, firm - *Routine Extremities Exam Present: full ROM. Absent: cyanosis, clubbing - *Routine Skin Exam Present: dry, wounds. Absent: intact, cyanosis Comments: Drsg R Foot C/D/I - *Routine Neurological Exam Present: alert, oriented X3. Absent: motor deficit - Routine Psychiatric Exam Present: normal affect, normal thought process. Absent: homicidal ideation Assessment and Plan (1) Obesity Status: Acute Qualifiers: Obesity type: due to excess calories Obesity classification: adult class 3 (BMI >= 40) Serious obesity comorbidity presence: with serious comorbidity Body mass index: BMI 40.0-44.9 Qualified Code(s): E66.01 - Morbid (severe) obesity due to excess calories; Z68.41 - Body mass index [BMI] 40.0-44.9, adult Category: Medical Code(s): E66.9 - Obesity, unspecified (2) Osteomyelitis Status: Acute Qualifiers: Osteomyelitis type: other acute Osteomyelitis location: foot Laterality: right Qualified Code(s): M86.171 - Other acute osteomyelitis, right ankle and foot Category: Medical Code(s): M86.9 - Osteomyelitis, unsp
[2021-09-08 11:28] LABS: Hemoglobin A1C 7.8 % (4.0-6.0)
--- NOTE | 2021-09-08 12:18 | HMH.PULMCON ---
*Admission Date: 09/07/21 *Reason for consult:: COVID-19 pneumonia *History of present illness: Ms. Hernandez is a 60-year-old female not yet vaccinated, no significant smoking history, no prior respiratory complaints presented to the hospital with right screening found to be COVID-19 positive and pulmonary was called for further management. Patient also admits a prior diagnosis of COVID-19 pneumonia in April 2021 that was managed as an outpatient basis. Denies any known sick contacts. [facility] History Medical History: Reports:: Coronary Artery Disease, Diabetes Mellitus Type 2, Hyperlipidemia, Hypertension, Myocardial Infarction Denies:: Cancer, Diabetes Mellitus Type 1, MRSA *Have you ever received a pneumonia vaccine?: No *Have you received a flu vaccine this season?: Yes Other Surgeries: Yes: Cardiac Catheterization, Colonoscopy, Colostomy (has been reversed), , Tubal Ligation Amputation: Yes Fractures: No - *Social History Last grade of school completed: 11th or 12th Smoking Status: Former smoker Tobacco Type: cigarettes # Packs/Day (cigarettes): 1 #Yrs smoked (if former smoker): 30 Alcohol Intake: never Substance Use Type: denies use *Occupational Status:: disabled Housing: house Household Members: family *Travel in the last 8 weeks: None Family Hx:: Adopted ROS - Cons Denies anorexia, Denies body ache(s), Denies chills - Eyes Denies change in vision - ENT Denies bleeding gums, Denies change in voice - Card Denies shortness of breath, Denies shortness of breath with activity - Resp Respiratory: Denies chest congestion, Denies cough, Denies non-productive cough, Denies dyspnea, Denies dyspnea on exertion, Denies pain on inspiration, Denies pain with cough, Denies wheezing - GI Gastrointestingal: Denies: abdominal pain - [place] Musculoskeletal: Reports tingling - Psych Denies thoughts of hurting/killing others, Denies thoughts of hurting/killing yourself Meds Home Medications Medication Instructions Recorded Confirmed Type Metoprolol Tartrate [Lopressor 25 mg PO BID 05/17/21 09/08/21 History 25mg tablet] ondansetron HCL [Ondansetron 4mg 4 mg PO Q6 PRN #12 tab 05/17/21 09/07/21 Rx tab*] clopidogrel 75 mg tablet 75 mg PO DAILY #30 tab 06/22/21 09/08/21 Rx insulin glargine 100 unit/mL (3 20 unit SQ BID #15 ml 06/22/21 09/08/21 Rx mL) subcutaneous pen lisinopril 5 mg tablet 5 mg PO DAILY #30 tab 07/01/21 09/08/21 Rx Sertraline HCl [Zoloft] 50 mg PO DAILY 09/07/21 09/08/21 History Aspirin 81 mg PO DAILY 09/08/21 09/08/21 History Atorvastatin Calcium [Lipitor 40mg 40 mg PO DAILY 09/08/21 09/08/21 History Tab] Metformin HCl 1,000 mg PO BID 09/08/21 09/08/21 History Allergies Allergy/AdvReac Type Severity Reaction Status Date / Time Penicillins Allergy Verified 07/01/21 15:29 Exam - Constitutional Constitutional:: Present: no acute distress, comfortable - HENMT Exam HENMT: Present: normocephalic, atraumatic - Eye Exam Eyes:: Present: normal appearance both eyes and related structures - Neck Exam Neck:: Present: normal visual inspection - Respiratory Exam Respiratory:: Present: able to speak in complete sentences, no respiratory distress, normal respiratory effort. Absent: respiratory distress, crackles, wheezing - Cardiovascular Exam Cardiac:: Present: S1, S2 - GI Exam GI:: Present: soft, normoactive bowel sounds - Skin Exam Skin: Present: warm, no rash - Neurological Exam Neurological: Present: alert, awake, normal cognition - Extremities Exam Extremities: Present: no cyanosis, no clubbing Internal Medicine - CN: Reslt - Labs CBC & Chem 7: 09/08/21 06:38 09/08/21 06:38 Labs: Short CBC 09/07/21 09/08/21 Range/Units 18:21 06:38 WBC 11.9 H 11.0 H (4.8-10.8) K/mm3 Hgb 14.0 12.6 (12.2-16.2) g/dL Hct 44.7 39.2 (37.0-47.0) % Plt Count 499 H 407 (142-424) K/mm3 BMP 09/07/21 09/08/21 18:21 06:38 Sodium
--- NOTE | 2021-09-08 12:35 | P.PN_ITS ---
[facility] Anesthesia Checklist - Patient Identification Patient Identification: Arm Band - Structural Data Admitted From: Home Planned Operative Procedure/s: Right 2nd Toe Amputation Consent for Planned Operative Procedure(s) Verified: Yes Verified Documents: Surgical Consent, History and Physical - NPO Status Verified Time NPO: 00:00 - Additional verifications Anesthesia Reactions: No - Airway Assessment C-Spine Mobility Assessed: Yes (mp2) TMJ Mobility Assessed: Yes Dentition: Poor Dentition - Neurological Assessment Level of Consciousness: Awake, Alert - Anesthesia Plan Anesthesia Risk discussed: Yes Anesthesia Plan: Verified ASA Class: III Anesthesia Type: General [facility] History I have reviewed the patient's past medical history: Yes Medical History: Reports:: Coronary Artery Disease, Diabetes Mellitus Type 2, Hyperlipidemia, Hypertension, Myocardial Infarction Denies:: Cancer, Diabetes Mellitus Type 1, MRSA *Have you ever received a pneumonia vaccine?: No *Have you received a flu vaccine this season?: Yes Anesthesia experience/problems:: nac Other Surgeries: Yes: Cardiac Catheterization, Colonoscopy, Colostomy (has been reversed), , Tubal Ligation Amputation: Yes Fractures: No - *Social History Last grade of school completed: 11th or 12th Smoking Status: Former smoker Tobacco Type: cigarettes # Packs/Day (cigarettes): 1 #Yrs smoked (if former smoker): 30 Alcohol Intake: never Substance Use Type: denies use *Occupational Status:: disabled Housing: house Household Members: family *Travel in the last 8 weeks: None Family Hx:: Adopted
--- NOTE | 2021-09-08 13:06 | XR_ITS ---
FINAL REPORT CLINICAL HISTORY: Post op amp FINDINGS: RIGHT FOOT Three views of the right foot demonstrate no acute fracture or dislocation. There are postoperative changes from amputation of the 2nd and 3rd digits at the MTP joints. The visualized joint spaces are intact. There is a small plantar calcaneal spur. There are vascular calcifications. IMPRESSION: Postoperative changes as described. Small plantar calcaneal spur. Reviewed, Interpreted and Dictated by Xavi Keating III, MD Transcribed by Kimberley Lopez Authenticated by Xavi Keating III, MD on 09/08/2021 03:11:17 PM [facility]
--- NOTE | 2021-09-08 13:12 | HMH.OPNOTE ---
Date of procedure: 09/08/21 Pre-op Diagnosis:: 1. Right 2nd toe osteomyelitis 2. Right 2nd toe cellulitis 3. Right 2nd toe DM ulcer 4. Uncontrolled DM Post-op Diagnosis:: Same Procedure performed:: 1. Right 2nd toe amputation 2. Right 2nd toe irrigation and debridement, ulcer excision Surgeon:: Paula Contreras DPM PROJECT ASSISTANT:: Deniz Roe Anesthesia: GETA Estimated blood loss (mL): 10 Clinical Note:: Patient is a 60-year-old uncontrolled diabetic female who presented to the [facility] 09/07/2021 with complaints of red hot swollen right second toe. She has a history of right third toe amputation in [place]. Imaging and labs confirmed osteomyelitis of the right second toe. She was also found to be COVID-positive. New images were discussed with the patient. We discussed conservative versus surgical treatment options. We discussed conservative care including continued oral vs IV antibiotics and local wound care versus surgical incision and drainage. Patient understands that they could have wound healing complications including delayed healing and infection. We discussed that if the wound does not heal, it is possible that they may need further debridement. Patient understands if infection spreads into the bone, it may warrant proximal amputation and could result in further loss of digits, loss of partial foot or loss of leg. We discussed the risks and benefits in great detail. Other surgical risks include: prolonged pain and swelling, further infection requiring oral or IV antibiotics, delay in healing of soft tissue or bone, nerve or blood vessel damage, CRPS/RSD, DVT, anesthesia complications, and even . All questions answered. Patient verbalized understanding. Consent obtained. Operative findings:: Right second toe has edema and erythema noted to the MPJ. Purulence noted from the distal tip of the toe where an ulcer/opening was noted measuring 0.2 x 0.2 x 0.6, it did probe full-thickness to the level of the distal phalanx bone. Creamy yellow purulence malodor noted from the distal toe tip. The infection seem to be localized to the toe. It did not extend up the extensor or flexor tendon past the MPJ. Operative note:: On this date and time patient was deemed an appropriate surgical candidate. With informed consent signed, the patient was taken to the operating theater. The patient was positioned supine. General anesthesia was induced. No tourniquet used. IV Clinda 900mg infused after bone cultures. Right 2nd irrigation and debridement, digit amputation: The right lower extremity was prepped and drapped in normal sterile fashion. Cellulitis is noted extending to the MPJ. A fish mouth incision was mapped out. Utilizing a 15 blade dissection was carried down sharply to the level of the bone around the medial phalanx which was disarticulated from the proximal phalanx. The ulcer and non viable skin was excised in total. The distal phalanx bone was soft and crumbly and had a mild malodor to it. Portion of it was cut and sent for bone culture and the other part was sent for bone biopsy for pathology. Attention was then directed to the middle phalanx. The head was soft and easily broken, discolored with cortical erosions noted. Middle phalanx was sent for bone culture with distal specimen. The proximal phalanx head has some cortical erosions, discoloration. It was disarticulated from metatarsal head and sent for proximal margin to pathology. Next 1 L of gentamicin irrigation was used to flush the wound. The 2nd metatarsal head had no cortical erosions, discoloration or obvious signs of osteomyelitis. The wound was reexplored and no further signs of infection noted. Bleeding controlled. Vessels ligated with electrocautery, minimal blood loss. 3-0 Prolene was used to close skin in an interrupted simple suture fashion. The wounds were cleansed. Betadine, dry sterile dressing was then applied to the foot. The patient was awoken from anesthesia and t
--- NOTE | 2021-09-08 13:14 | P.PN_ITS ---
[facility] Anesthesia Record Part I Intake, IV Amount: 500 Estimated blood loss (mL): 10 Urine output (mL): 0 Blood Pressure: 162/80 SaO2: 92 Pulse Rate: 89 Respiratory Rate: 16 Temperature: 97.7 F Patient is:: Drowsy, Stable Stable to PACU at:: 13:00
--- NOTE | 2021-09-08 15:20 | PC.NURSE ---
Pt arrived to floor @ 1340. Pt awake, alert, is able to follow commands. Room air, no s/s of resp distress. HR regular. VSS. RLE elevated on pillow. Cap refill <3 sec. No complaints of pain. No needs voiced @ this time. Meal tray provided, tolerated meal well. No c/o N/V. Call vivas w/ reach.
[2021-09-09] VITALS: BP 166/77; PULSE 79; RESP 16; TEMP 36.9; O2SAT 98
--- NOTE | 2021-09-09 03:31 | PC.NURSE ---
Blood consent obtained at this time per family member. Pt still refusing to have a 2nd iv started.
--- NOTE | 2021-09-09 03:33 | PC.NURSE ---
Addendum entered by Emilia Suarez RN 09/09/21 03:50: Remains in airborne/contact isolation Original Note: Pt has rested well this shift. Has had no complaints of pain. Pt has been getting up with partial weight bearing to the RLE and ambulating to the bathroom using her walker and standby assistance from staff. Pt has voided multiple times shift, no reports of bm. LS remain cta with diminished bases, pt remains on room air. Has denied any shortness of breath this shift. No cough noted. Abdomen soft and nontender. VSS. No acute changes noted, will continue to monitor.
[2021-09-09 04:00] VITALS: BP 154/81; PULSE 68; RESP 16; TEMP 36.6; O2SAT 94
[2021-09-09 05:00] VITALS: BMI 44.1
[2021-09-09 06:07] LABS: POC Glucose,Bedside 88 (70-110)
[2021-09-09 06:07] LABS: POC Glucose,Bedside 173 (70-110)
[2021-09-09 06:07] LABS: POC Glucose,Bedside 224 (70-110)
[2021-09-09 07:42] LABS: Basophils # 0.1 K/mm3 (0-0.2); Basophils % 0.5 % (0.1-2.0); Eosinophils # 0.1 K/mm3 (0.0-0.4); Eosinophils % 0.4 % (0.1-12.0); Hematocrit 41.3 % (37.0-47.0); Hemoglobin 12.4 g/dL (12.2-16.2); Lymphocytes # 2.3 K/mm3 (0.7-4.5); Lymphocytes % 19.2 % (10-50); Mean Corpuscular Hemoglobin 27.7 pg (27.0-31.2); Mean Corpuscular Volume 92.4 fl (81-99); Mean Platelet Volume 8.4 fl (7.4-10.4); Monocytes # 0.8 K/mm3 (0.1-1.0); Monocytes % 6.7 % (1.7-9.3); Neutrophils # 8.8 K/mm3 (1.8-7.8); Neutrophils % 73.1 % (37.0-80.0); Platelet Count 469 K/mm3 (142-424); Red Blood Count 4.47 M/mm3 (4.20-5.40); Red Cell Distribution Width 15.1 % (11.5-17.5)
[2021-09-09 07:52] LABS: POC Glucose,Bedside 147 (70-110)
[2021-09-09 07:54] LABS: Alanine Aminotransferase 17 U/L (12-78); Albumin Level 3.4 g/dl (3.5-5.0); Albumin/Globulin Ratio 0.9 (1.1-1.8); Alkaline Phosphatase 85 U/L (38-126); Anion Gap 8.9 mEq/L (5-15); Aspartate Amino Transferase 21 U/L (14-36); Bilirubin,Total 0.3 mg/dl (0.2-1.3); Blood Urea Nitrogen 11 mg/dl (7-17); Calcium 8.6 mg/dl (8.4-10.2); Carbon Dioxide 32 mmol/L (22.0-30.0); Chloride 103 mmol/L (98-107); Creatinine Clearance Estimated 46 mL/min (50-200); Estimated Glomerular Filt Rate 73 ml/min (>60); GFR (African American) 88 ML/MIN (>60); Globulin 3.7 g/dL (1.3-3.2); Glucose 158 mg/dl (74-100); Potassium 3.9 mmoL/L (3.5-5.1); Sodium 140 mmol/L (136-145); Total Protein,Serum 7.1 g/dl (6.3-8.2)
[2021-09-09 08:00] VITALS: BP 160/71; PULSE 60; RESP 15; TEMP 36.5; O2SAT 98
--- NOTE | 2021-09-09 09:01 | HMH.ORTHPN ---
Subjective Date: 09/09/21 <Amisha Noonan 09/09/21 09:32> Time: 08:45 <Amisha Noonan 09/09/21 09:32> Principal diagnosis: Ostoemyelitis, diabetic foot <Amisha Noonan 09/09/21 09:32> Interval history: Patient sitting up in bed. Alert and oriented x 3. No acute distress noted. Status post right 2nd toe amputation and right 2nd toe irrigation and debridement, ulcer excision. Patient denies pain to right foot this morning. Surgical dressing removed, right foot 2nd toe amputation site with stitches in place. Small amount sanguineous drainage and surrounding erythema, edema noted. Incision cleaned with wound cleanser. Betadine soaked 4x4, dry 4x4, kirlex, and sang wrap dressing applied. <Amisha Noonan 09/09/21 10:27> PN: Obj Ex Vital signs: Temp Pulse Resp BP Pulse Ox 97.8 F 59 L 18 172/79 H 99 09/09/21 11:28 09/09/21 11:28 09/09/21 11:28 09/09/21 11:28 09/09/21 11:28 <Paula Contreras - 09/09/21 11:58> Temp Pulse Resp BP Pulse Ox 97.7 F 60 15 160/71 H 98 09/09/21 08:00 09/09/21 08:00 09/09/21 08:00 09/09/21 08:00 09/09/21 08:00 <Amisha Noonan 09/09/21 09:32> - Constitutional no acute distress, cooperative <Amisha Noonan 09/09/21 10:27> - Routine HEENT Exam Head: Present: normocephalic <Amisha Noonan 09/09/21 10:27> Eye: Present: EOMI <Amisha Noonan 09/09/21 10:27> ENT: Present: mucous membranes moist <Amisha Noonan 09/09/21 10:27> - Routine Neck Exam Present: supple, trachea midline <ShaistaAmisha 09/09/21 10:27> - Routine Respiratory Exam Absent: accessory muscle use, respiratory distress <Amisha Noonan 09/09/21 10:27> - Routine Cardiovascular Exam Present: RRR <Amisha Noonan 09/09/21 10:27> - Routine Abdominal Exam Present: soft <Amisha Noonan 09/09/21 10:27> - Routine Extremities Exam Present: pulses intact, normal capillary refill, amputation (s/p right second toe and healed old 3rd toe). Absent: calf tenderness <Amisha Noonan 09/09/21 10:27> - Detailed Lower Extremity Exam Foot/Toes: Right amputation (2nd and 3rd toes), Right erythema (2nd toe), Right swelling (2nd toe), Right wound (2nd toe) <Amisha Noonan 09/09/21 10:27> Top foot image: 1 - S/P right 2nd toe amputation. Initial surgical dressing removed. There is stitches in place and small amount of sanguineous drainage noted. The incision site has surrounding erythema and edema noted. Wound cleaned. Betadine soaked 4x4, dry 4x4, kirlex and sang wrap applied. <Amisha oNonan 09/09/21 10:27> Progress Note: A&P (1) Obesity Status: Acute (2) Osteomyelitis Start date: 09/09/21 Start time: 08:45 Status: Acute (3) Type 2 diabetes mellitus Start date: 09/09/21 Start time: 08:45 Status: Acute (4) COVID-19 Status: Acute (5) SIRS (systemic inflammatory response syndrome) Status: Acute (6) Right foot pain Start date: 09/09/21 Start time: 08:45 Status: Acute (7) Edema of right foot Start date: 09/09/21 Start time: 08:45 Status: Acute (8) Diabetic ulcer of right foot Start date: 09/09/21 Start time: 08:45 Status: Acute (9) History of amputation of lesser toe of right foot Start date: 09/09/21 Start time: 08:45 Status: Acute (10) Diabetic foot ulcers Start date: 09/09/21 Start time: 08:45 Status: Acute (11) Encounter for wound care Start date: 09/09/21 Start time: 08:45 Status: Acute (12) Osteomyelitis of second toe of right foot Start date: 09/09/21 Start time: 08:45 Status: Acute <[email or web address] grayson - 09/09/21 10:28> (1) Obesity Status: Acute (2) Osteomyelitis Status: Acute (3) Type 2 diabetes mellitus Status: Acute (4) COVID-19 Status: Acute (5) SIRS (systemic inflammatory response syndrome) Status: Acute (6) Right foot pain Status: Ac
--- NOTE | 2021-09-09 09:31 | HMH.DCSUM ---
General - General Admission date:: 09/07/21 Discharge date: 09/09/21 HPI HPI: this patient presented to the ed - a 60-year-old female present emergency department chief complaint of foot pain on her second toe. Patient states that she has had 2 days of increased pain. She has had an erythematous red and swollen foot. She states that her daughter later this evening and was concerned about it given that she has had increased swelling and increased pain. She does state that she has diabetes and has some impaired sensation in it, does have a history of removal of third toe. She has some mild pain in her right ankle as well as right foot, there is denying fevers, chills, shortness of air, nausea, vomiting. pt with prob osteomyelitis and was admitted for iv abx and podiatry consult Hospital Course Hospital Course: Microbiology 09/08/21 12:26 Toe,Second Right Gram Stain - Final 09/08/21 09:00 Toe,Second Right Gram Stain - Final Laboratory Tests 09/07/21 09/07/21 09/07/21 18:21 18:21 18:21 WBC 11.9 H RBC 4.98 Hgb 14.0 Hct 44.7 MCV 89.7 MCH 28.1 MCHC 31.4 L RDW 15.0 Plt Count 499 H MPV 8.2 Neut % (Auto) 64.9 Lymph % (Auto) 23.4 Ada % (Auto) 5.6 Eos % (Auto) 4.0 Baso % (Auto) 2.1 H Neut # (Auto) 7.7 Lymph # (Auto) 2.8 Ada # (Auto) 0.7 Eos # (Auto) 0.5 H Baso # (Auto) 0.3 H Total Counted 100 Neutrophils % (Manual) 70 Lymphocytes % (Manual) 24 Monocytes % (Manual) 1 L Eosinophils % (Manual) 5 H Platelet Estimate Slight increase RBC Morphology Normal ESR 29 PT 10.7 INR 0.94 Sodium 142 Potassium 3.6 Chloride 103 Carbon Dioxide 32 H Anion Gap 10.6 BUN 11 Creatinine 0.70 Estimated Creat Clear 48 Estimated GFR 85 Est GFR ( Amer) 103 Glucose 116 H POC Glucose Hemoglobin A1c Calcium 8.6 Total Bilirubin 0.2 AST 29 ALT 15 Alkaline Phosphatase 104 C-Reactive Protein 26.9 H Total Protein 7.7 Albumin 3.6 Globulin 4.1 H Albumin/Globulin Ratio 0.9 L SARS-CoV-2 (PCR) Influenza A Untype (PCR) Influenza Type B (PCR) 09/07/21 09/08/21 09/08/21 18:50 05:22 06:38 WBC 11.0 H RBC 4.34 Hgb 12.6 Hct 39.2 MCV 90.3 MCH 28.0 MCHC 31.0 L RDW 15.0 Plt Count 407 MPV 8.3 Neut % (Auto) 62.2 Lymph % (Auto) 24.2 Ada % (Auto) 7.5 Eos % (Auto) 5.2 Baso % (Auto) 1.1 Neut # (Auto) 6.8 Lymph # (Auto) 2.7 Ada # (Auto) 0.8 Eos # (Auto) 0.6 H Baso # (Auto) 0.1 Total Counted Neutrophils % (Manual) Lymphocytes % (Manual) Monocytes % (Manual) Eosinophils % (Manual) Platelet Estimate RBC Morphology ESR PT INR Sodium Potassium Chloride Carbon Dioxide Anion Gap BUN Creatinine Estimated Creat Clear Estimated GFR Est GFR ( Amer) Glucose POC Glucose 109 Hemoglobin A1c Calcium Total Bilirubin AST ALT Alkaline Phosphatase C-Reactive Protein Total Protein Albumin Globulin Albumin/Globulin Ratio SARS-CoV-2 (PCR) Detected A Influenza A Untype (PCR) Not detected Influenza Type B (PCR) Not detected 09/08/21 09/08/21 09/08/21 06:38 06:38 11:54 WBC RBC Hgb Hct MCV MCH MCHC RDW Plt Count MPV Neut % (Auto) Lymph % (Auto) Ada % (Auto) Eos % (Auto) Baso % (Auto) Neut # (Auto) Lymph # (Auto) Ada # (Auto) Eos # (Auto) Baso # (Auto) Total Counted Neutrophils % (Manual) Lymphocytes % (Manual) Monocytes % (Manual) Eosinophils % (Manual) Platelet Estimate RBC Morphology ESR PT INR Sodium 138 Potassium 3.4 L Chloride 104 Carbon Dioxide 32 H Anion Gap 5.4 BUN 10 Creatinine 0.70 Estimated Creat Clear 48 Estimated
--- NOTE | 2021-09-09 10:49 | SW/DCPLANNER ---
PATIENT IS DISCHARGING HOME TODAY AND WILL FOLLOW UP WITH DR MAYEN ON WEDNESDAY 09/13.. SHE WILL NOT NEED HER DRESSING CHANGES UNTIL SHE SEES [facility] IN THE OFFICE.. DR MAYEN DID STATE SHE WILL EITHER NEED TO BE SET UP WITH HOME HEALTH OR OUT PATIENT AFTER SHE IS SEEN IN THE OFFICE.. WILL MAKE CONTACT WITH DAUGHTER TO SEE IF THEY HAVE AWAY TO GET HER BACK TO THE HOSPITAL FOR OUT PATIENT SINCE I HAVE NOT BEEN ABLE TO FIND AN AGENCY THAT ACCEPTS MEDICAID PATIENTS...
--- NOTE | 2021-09-09 11:09 | SW/DCPLANNER ---
I spoke with this patient regarding discharge plans: patient resides at home with daughter. Patient understands that she will need dressing changes 2-3x week. Patient insurance is not in network with any home health agency. Patient is agreeable to return to [facility] 2-3x week for dressing changes. Patient has also requested a rolling walker at time of discharge. Patient information/order will be faxed to [facility] and patient has requested that rolling walker be delivered to [facility]. I will also make sure that patient has post op shoe prior to discharge.
--- NOTE | 2021-09-09 11:18 | PC.NURSE ---
pt would benefit from a rolling walker to help with stability during ambulation related to amputation of 2nd toe on right foot.
[2021-09-09 11:28] VITALS: BP 172/79; PULSE 59; RESP 18; TEMP 36.6; O2SAT 99
--- NOTE | 2021-09-09 11:34 | HMH.PULMPN ---
Internal Medicine - PN: Subj *Date: 09/09/21 *Time: 11:34 Interval history: No acute respiratory events overnight. Continues to remain on room air. Exam - Constitutional Constitutional:: Present: no acute distress, comfortable - HENMT Exam HENMT: Present: normocephalic, atraumatic - Eye Exam Eyes:: Present: normal appearance both eyes and related structures - Neck Exam Neck:: Present: normal visual inspection - Respiratory Exam Respiratory:: Present: able to speak in complete sentences, no respiratory distress. Absent: accessory muscle use, crackles, rhonchi, stridor, wheezing - Cardiovascular Exam Cardiac:: Present: S1, S2 - GI Exam GI:: Present: soft, normoactive bowel sounds - Skin Exam Skin: Present: warm, no rash, dry - Neurological Exam Neurological: Present: alert, awake, normal cognition - Extremities Exam Extremities: Present: no cyanosis, no clubbing Assessment and Plan (1) Obesity Status: Acute Qualifiers: Obesity type: due to excess calories Obesity classification: adult class 3 (BMI >= 40) Serious obesity comorbidity presence: with serious comorbidity Body mass index: BMI 40.0-44.9 Qualified Code(s): E66.01 - Morbid (severe) obesity due to excess calories; Z68.41 - Body mass index [BMI] 40.0-44.9, adult Category: Medical Code(s): E66.9 - Obesity, unspecified (2) Osteomyelitis Start date: 09/09/21 Start time: 08:45 Status: Acute Qualifiers: Osteomyelitis type: other acute Osteomyelitis location: foot Laterality: right Qualified Code(s): M86.171 - Other acute osteomyelitis, right ankle and foot Category: Medical Code(s): M86.9 - Osteomyelitis, unspecified (3) Type 2 diabetes mellitus Start date: 09/09/21 Start time: 08:45 Status: Acute Qualifiers: Diabetes mellitus senior living insulin use: without insecticide maker use Diabetes mellitus complication status: without complication Qualified Code(s): E11.9 - Type 2 diabetes mellitus without complications Category: Medical Code(s): E11.9 - Type 2 diabetes mellitus without complications (4) COVID-19 Status: Acute Category: Medical Code(s): U07.1 - COVID-19 (5) SIRS (systemic inflammatory response syndrome) Status: Acute Category: Medical Code(s): R65.10 - Systemic inflammatory response syndrome (SIRS) of non-infectious origin without acute organ dysfunction (6) Right foot pain Start date: 09/09/21 Start time: 08:45 Status: Acute Category: Medical Code(s): M79.671 - Pain in right foot (7) Edema of right foot Start date: 09/09/21 Start time: 08:45 Status: Acute Category: Medical Code(s): R60.0 - Localized edema (8) Diabetic ulcer of right foot Start date: 09/09/21 Start time: 08:45 Status: Acute Category: Medical Code(s): E11.621 - Type 2 diabetes mellitus with foot ulcer; L97.519 - Non-pressure chronic ulcer of other part of right foot with unspecified severity (9) History of amputation of lesser toe of right foot Start date: 09/09/21 Start time: 08:45 Status: Acute Category: Surgical Code(s): Z89.421 - Acquired absence of other right toe(s) (10) Diabetic foot ulcers Start date: 09/09/21 Start time: 08:45 Status: Acute Category: Medical Code(s): E11.621 - Type 2 diabetes mellitus with foot ulcer; L97.509 - Non-pressure chronic ulcer of other part of unspecified foot with unspecified severity (11) Encounter for wound care Start date: 09/09/21 Start time: 08:45 Status: Acute Category: Medical Code(s): Z51.89 - Encounter for other specified aftercare (12) Osteomyelitis of second toe of right foot Start date: 09/09/21 Start time: 08:45 Status: Acute Category: Medical Code(s): M86.9 - Osteomyelitis, unspecified - Assessment and plan all Dx Assessment and Plan for all problems:: #COVID-19 pneumonia: 60-year-old not yet vaccinated. No significant prior respiratory complaints. Presented w
[2021-09-09 11:46] LABS: POC Glucose,Bedside 90 (70-110)
--- NOTE | 2021-09-09 11:53 | HMH.PTEV ---
Physical Therapy Evaluation Rehab PT IP Evaluation Start: 09/08/21 13:04 Freq: ONCE Status: Active Protocol: Document 09/09/21 10:15 PHORBEAN (Rec: 09/09/21 11:52 PHORNE [id number]) Subjective/History History History 60 yowf adm to [facility] S/P R 2 nd toe amputation due to osteomyelitis. She reports she has no steps to enter the home and lives with family. She is independent with all mobility at baseline. Subjective Subjective She reports no c/o pain at this time. Rehab PT IP Eval Objective Appearance Patient Behavior Appropriate Patient Orientation Person,Place,Time Difficulty following instructions none Speech Pattern Clear Ambulation Patient Able to Ambulate Yes Ambulation Observation IP General Gait Pattern Observation Antalgic Gait,Decrease Weight Bear (R) Ambulation Distance (feet) 30 Ambulation Assistive Device Rolling Walker Ambulation Ability Independent Balance Ability to Arise Able, uses arms to help Sitting Balance Steady, safe Standing Balance Narrow stance w/o support Dynamic Sitting Balance Ability Normal Dynamic Standing Balance Ability Good Transfers Bed Transfer Ability Independent Chair Transfer Ability Independent Sit to Stand Bed Transfer Ability Independent Sit to Stand Chair Transfer Ability Independent Rehab PT IP prob,goals,plan Problems Date of Evaluation: 09/09/21 Discharge Plan PT Discharge Plan Pt is independent with all mobility and is appropriat to return home once medically stable. Rec rolling walker for home use to maximize safety. G -code Required No Eval Complexity Eval Charge Codes 10501 - Moderate Complexity PHYSICIAN CERTIFICATION: I certify the specified therapy services for Inez Hernandez are required, authorized, and reviewed every 30 days.
[2021-09-09 12:56] LABS: POC Glucose,Bedside 167 (70-110)
--- NOTE | 2021-09-09 14:14 | HMH.ANESII ---
[facility] Anesthesia Record Part II Discharge Time: 13:30 Destination: Medical Surgical Department PACU nurse assessment reviewed?: Yes Patient Condition:: Good Anesthesia Complications:: None Swallowing reflex intact?: Yes Cyanosis?: No Blood Pressure: 149/79 Pulse Rate: 78 Temperature: 97.7 F Mental Status: Alert & Oriented Pain level:: 0 Nausea and/or vomitting:: None Intake, IV Amount: 0
[2021-09-09 14:15] VITALS: BP 149/79; PULSE 78; TEMP 36.5
[2021-09-09 16:00] VITALS: BP 168/91; PULSE 58; RESP 16; TEMP 36.8; O2SAT 98
[2021-09-09 20:47] LABS: POC Glucose,Bedside 117 (70-110)
== END 2021-09-09 19:05 | disposition home or self-care (01) | DRG 255 ==
LOC: ER 17:12 → 2ND 20:22
PROVIDERS: Podiatrist; Admitting Provider Emergency Medicine; Emergency Provider Emergency Medicine; PCP Nurse Practitioner Family; Visit Provider Emergency Medicine
PROC: 0Y6R0Z2 Detachment at Right 2nd Toe, Mid, Open Approach (ICD-10-PCS; principal; 2021-09-08 12:00)
DX: E11.52 Type 2 diabetes mellitus with diabetic peripheral angiopathy with gangrene (principal); U07.1 COVID-19; M86.9 Osteomyelitis, unspecified; I96 Gangrene, not elsewhere classified; Z68.41 Body mass index [BMI] 40.0-44.9, adult; Z79.4 Long term (current) use of insulin; Z87.891 Personal history of nicotine dependence; E11.69 Type 2 diabetes mellitus with other specified complication; I25.2 Old myocardial infarction; I10 Essential (primary) hypertension; I25.10 Atherosclerotic heart disease of native coronary artery without angina pectoris; E66.01 Morbid (severe) obesity due to excess calories; Z89.421 Acquired absence of other right toe(s); E11.621 Type 2 diabetes mellitus with foot ulcer; E78.5 Hyperlipidemia, unspecified; L03.031 Cellulitis of right toe
CPT/HCPCS: 28160; 36415; 71045; 73630; 73700; 80048; 80053; 82962; 83036; 85007; 85014; 85018; 85025; 85048; 85049; 85610; 85651; 86140; 87040; 87070; 87075; 87077; 87186; 87205; 88304; 88305; 88311; 96365; 96366; 97162; 99284; C9803; J0696; J2405; J3370; U0003; U0005

== ENCOUNTER 2021-09-14 10:58 | Outpatient (CLI) | payer MEDICAID, SELFPAY ==
[2021-09-14 11:07] VITALS: BMI 44.1
[2021-09-14 11:24] LABS: Basophils # 0.1 K/mm3 (0-0.2); Basophils % 0.7 % (0.1-2.0); Eosinophils # 0.6 K/mm3 (0.0-0.4); Eosinophils % 5.2 % (0.1-12.0); Lymphocytes # 2.7 K/mm3 (0.7-4.5); Lymphocytes % 22.8 % (10-50); Mean Corpuscular Hemoglobin 27.8 pg (27.0-31.2); Mean Corpuscular Volume 89.5 fl (81-99); Mean Platelet Volume 7.8 fl (7.4-10.4); Monocytes # 0.7 K/mm3 (0.1-1.0); Neutrophils # 7.7 K/mm3 (1.8-7.8); Neutrophils % 65.4 % (37.0-80.0); Platelet Count 444 K/mm3 (142-424); Red Blood Count 4.69 M/mm3 (4.20-5.40); Red Cell Distribution Width 14.7 % (11.5-17.5); White Blood Count 11.8 K/mm3 (4.8-10.8)
[2021-09-14 11:26] LABS: Chloride 104 mmol/L (98-107); Potassium 3.6 mmoL/L (3.5-5.1); Sodium 142 mmol/L (136-145)
[2021-09-14 11:29] LABS: Anion Gap 7.6 mEq/L (5-15); Blood Urea Nitrogen 15 mg/dl (7-17); Calcium 9.1 mg/dl (8.4-10.2); Carbon Dioxide 34 mmol/L (22.0-30.0); Creatinine Clearance Estimated 48 mL/min (50-200); Estimated Glomerular Filt Rate 63 ml/min (>60); GFR (African American) 77 ML/MIN (>60); Glucose 128 mg/dl (74-100)
[2021-09-14 11:35] LABS: C-Reactive Protein 53.9 mg/L (0-4)
--- NOTE | 2021-09-14 11:49 | PC.NURSE ---
09/14/21 1115 lab staff with pt to obtain blood needed for weekly labs as ordered per md.
[2021-09-14 12:23] LABS: Erythrocyte Sedimentation Rate 78 mm/hr (0-30)
== END 2021-09-14 11:30 | disposition home or self-care (01) ==
LOC: INF 10:58
PROVIDERS: PCP Nurse Practitioner Family; Visit Provider Podiatrist
DX: M86.9 Osteomyelitis, unspecified (principal); L03.115 Cellulitis of right lower limb
CPT/HCPCS: 36415; 80048; 85025; 85651; 86140; G0463

== ENCOUNTER 2021-09-16 10:50 | Outpatient (CLI) | payer MEDICAID, SELFPAY | END 2021-09-16 11:05 | disposition home or self-care (01) | LOC: INF 10:50 | PROVIDERS: PCP Nurse Practitioner Family; Visit Provider Podiatrist | DX: M79.671 Pain in right foot (principal); L03.115 Cellulitis of right lower limb; M86.9 Osteomyelitis, unspecified; E11.9 Type 2 diabetes mellitus without complications; Z79.4 Long term (current) use of insulin; Z89.421 Acquired absence of other right toe(s) | CPT/HCPCS: G0463 ==

== ENCOUNTER 2021-09-19 10:53 | Outpatient (CLI) | payer MEDICAID, SELFPAY ==
[2021-09-19 10:59] VITALS: BMI 42.7
--- NOTE | 2021-09-19 11:11 | PC.NURSE ---
1111-collected labs via peripheral stick
[2021-09-19 11:25] LABS: Basophils # 0.1 K/mm3 (0-0.2); Basophils % 1.1 % (0.1-2.0); Eosinophils # 0.4 K/mm3 (0.0-0.4); Eosinophils % 3.3 % (0.1-12.0); Hematocrit 43.2 % (37.0-47.0); Hemoglobin 13.4 g/dL (12.2-16.2); Lymphocytes # 3.2 K/mm3 (0.7-4.5); Lymphocytes % 28.4 % (10-50); Mean Corpuscular HGB Conc 31.1 g/dL (31.8-35.4); Mean Corpuscular Hemoglobin 27.4 pg (27.0-31.2); Mean Corpuscular Volume 88.1 fl (81-99); Mean Platelet Volume 8.3 fl (7.4-10.4); Monocytes # 0.7 K/mm3 (0.1-1.0); Monocytes % 6.2 % (1.7-9.3); Neutrophils # 6.9 K/mm3 (1.8-7.8); Platelet Count 398 K/mm3 (142-424); Red Cell Distribution Width 15.2 % (11.5-17.5); White Blood Count 11.2 K/mm3 (4.8-10.8)
[2021-09-19 11:31] LABS: Chloride 102 mmol/L (98-107); Potassium 3.4 mmoL/L (3.5-5.1); Sodium 140 mmol/L (136-145)
[2021-09-19 11:34] LABS: Anion Gap 9.4 mEq/L (5-15); Blood Urea Nitrogen 14 mg/dl (7-17); Carbon Dioxide 32 mmol/L (22.0-30.0); Creatinine Clearance Estimated 48 mL/min (50-200); Estimated Glomerular Filt Rate 73 ml/min (>60); GFR (African American) 88 ML/MIN (>60); Glucose 102 mg/dl (74-100)
[2021-09-19 11:35] LABS: Calcium 8.9 mg/dl (8.4-10.2)
[2021-09-19 11:40] LABS: C-Reactive Protein 19.5 mg/L (0-4)
[2021-09-19 11:55] LABS: Erythrocyte Sedimentation Rate 31 mm/hr (0-30)
== END 2021-09-19 11:14 | disposition home or self-care (01) ==
LOC: INF 10:54
PROVIDERS: PCP Nurse Practitioner Family; Visit Provider Podiatrist
DX: L03.115 Cellulitis of right lower limb (principal); M86.9 Osteomyelitis, unspecified; Z48.01 Encounter for change or removal of surgical wound dressing
CPT/HCPCS: 80048; 85025; 85651; 86140; G0463

== ENCOUNTER 2021-09-21 10:58 | Outpatient (CLI) | payer MEDICAID, SELFPAY ==
--- NOTE | 2021-09-21 16:24 | PC.NURSE ---
1105 - REMOVED DRESSING FROM RIGHT FOOT, COVERING 2ND TOE. CLEANED WITH NS, COVERED WITH BETADINE SOAKED GAUZE FOLLOWED WITH DRY GAUZE/KERLEX AND FILOMENA WRAP.
== END 2021-09-21 11:25 | disposition home or self-care (01) ==
LOC: INF 10:59
PROVIDERS: PCP Nurse Practitioner Family; Visit Provider Podiatrist
DX: L03.115 Cellulitis of right lower limb (principal); M86.9 Osteomyelitis, unspecified; Z89.421 Acquired absence of other right toe(s)
CPT/HCPCS: G0463

== ENCOUNTER 2021-09-26 10:53 | Outpatient (CLI) | payer MEDICAID, SELFPAY | END 2021-09-26 11:19 | disposition home or self-care (01) | LOC: INF 10:53 | PROVIDERS: PCP Nurse Practitioner Family; Visit Provider Podiatrist | DX: L03.115 Cellulitis of right lower limb (principal); M86.9 Osteomyelitis, unspecified; Z48.01 Encounter for change or removal of surgical wound dressing | CPT/HCPCS: G0463 ==

== ENCOUNTER 2021-09-27 08:59 | Outpatient (CLI) | payer MEDICAID, SELFPAY ==
[2021-09-27 08:59] VITALS: BMI 42.7
--- NOTE | 2021-09-27 09:07 | PC.NURSE ---
0907-pt here for lab draw;collected labs via peripheral stick.
[2021-09-27 09:18] LABS: Basophils # 0.2 K/mm3 (0-0.2); Basophils % 1.9 % (0.1-2.0); Eosinophils # 0.5 K/mm3 (0.0-0.4); Eosinophils % 4.8 % (0.1-12.0); Hematocrit 42.9 % (37.0-47.0); Hemoglobin 13.1 g/dL (12.2-16.2); Lymphocytes # 2.9 K/mm3 (0.7-4.5); Lymphocytes % 26.8 % (10-50); Mean Corpuscular HGB Conc 30.6 g/dL (31.8-35.4); Mean Corpuscular Hemoglobin 27.3 pg (27.0-31.2); Mean Corpuscular Volume 89.3 fl (81-99); Mean Platelet Volume 8.2 fl (7.4-10.4); Monocytes # 0.7 K/mm3 (0.1-1.0); Monocytes % 6.4 % (1.7-9.3); Neutrophils # 6.4 K/mm3 (1.8-7.8); Neutrophils % 60.1 % (37.0-80.0); Platelet Count 366 K/mm3 (142-424); Red Cell Distribution Width 15.3 % (11.5-17.5); White Blood Count 10.7 K/mm3 (4.8-10.8)
[2021-09-27 09:23] LABS: Chloride 100 mmol/L (98-107); Potassium 3.8 mmoL/L (3.5-5.1); Sodium 137 mmol/L (136-145)
[2021-09-27 09:26] LABS: Blood Urea Nitrogen 13 mg/dl (7-17); Creatinine Clearance Estimated 48 mL/min (50-200); Estimated Glomerular Filt Rate 73 ml/min (>60); GFR (African American) 88 ML/MIN (>60)
[2021-09-27 09:27] LABS: Anion Gap 7.8 mEq/L (5-15); Calcium 8.7 mg/dl (8.4-10.2); Carbon Dioxide 33 mmol/L (22.0-30.0); Glucose 95 mg/dl (74-100)
[2021-09-27 09:32] LABS: C-Reactive Protein 19.1 mg/L (0-4)
[2021-09-27 10:06] LABS: Erythrocyte Sedimentation Rate 26 mm/hr (0-30)
== END 2021-09-27 09:10 | disposition home or self-care (01) ==
LOC: INF 08:59
PROVIDERS: PCP Nurse Practitioner Family; Visit Provider Podiatrist
DX: L03.115 Cellulitis of right lower limb (principal); M86.9 Osteomyelitis, unspecified
CPT/HCPCS: 80048; 85025; 85651; 86140

== ENCOUNTER 2021-09-28 10:53 | Outpatient (CLI) | payer MEDICAID, SELFPAY | END 2021-09-28 11:10 | disposition home or self-care (01) | LOC: INF 10:53 | PROVIDERS: PCP Nurse Practitioner Family; Visit Provider Podiatrist | DX: L03.115 Cellulitis of right lower limb (principal); M86.9 Osteomyelitis, unspecified; Z48.01 Encounter for change or removal of surgical wound dressing | CPT/HCPCS: G0463 ==

== ENCOUNTER 2021-09-30 10:50 | Outpatient (CLI) | payer MEDICAID, SELFPAY | END 2021-09-30 11:05 | disposition home or self-care (01) | LOC: INF 10:50 | PROVIDERS: PCP Nurse Practitioner Family; Visit Provider Podiatrist | DX: L03.115 Cellulitis of right lower limb (principal); M86.9 Osteomyelitis, unspecified; Z48.01 Encounter for change or removal of surgical wound dressing | CPT/HCPCS: G0463 ==

== ENCOUNTER 2021-10-03 08:24 | Outpatient (CLI) | payer MEDICAID, SELFPAY ==
[2021-10-03 11:04] VITALS: BMI 42.7
[2021-10-03 11:27] LABS: Basophils # 0.2 K/mm3 (0-0.2); Basophils % 1.4 % (0.1-2.0); Eosinophils # 0.4 K/mm3 (0.0-0.4); Eosinophils % 3.2 % (0.1-12.0); Hematocrit 42.8 % (37.0-47.0); Hemoglobin 13.3 g/dL (12.2-16.2); Lymphocytes # 2.8 K/mm3 (0.7-4.5); Lymphocytes % 25.3 % (10-50); Mean Corpuscular Hemoglobin 27.3 pg (27.0-31.2); Mean Platelet Volume 8.5 fl (7.4-10.4); Monocytes # 0.6 K/mm3 (0.1-1.0); Monocytes % 5.1 % (1.7-9.3); Neutrophils # 7.2 K/mm3 (1.8-7.8); Platelet Count 368 K/mm3 (142-424); Red Blood Count 4.87 M/mm3 (4.20-5.40); White Blood Count 11.1 K/mm3 (4.8-10.8)
--- NOTE | 2021-10-03 11:29 | PC.NURSE ---
1110 - BLOOD DRAWN FROM RIGHT AC TO CHECK CBC, BMP, ESR, AND CRP AT THIS TIME.
[2021-10-03 11:46] LABS: Potassium 3.5 mmoL/L (3.5-5.1); Sodium 136 mmol/L (136-145)
[2021-10-03 11:47] LABS: Chloride 101 mmol/L (98-107)
[2021-10-03 11:49] LABS: Calcium 7.8 mg/dl (8.4-10.2); Glucose 210 mg/dl (74-100)
[2021-10-03 11:50] LABS: Anion Gap 7.5 mEq/L (5-15); Blood Urea Nitrogen 19 mg/dl (7-17); Carbon Dioxide 31 mmol/L (22.0-30.0); Creatinine Clearance Estimated 48 mL/min (50-200); Estimated Glomerular Filt Rate 63 ml/min (>60); GFR (African American) 77 ML/MIN (>60)
--- NOTE | 2021-10-03 12:05 | PC.NURSE ---
1050 - Removed dressing from pt's right foot/2nd toe amputation. Cleaned with NS. Steri strips in place. Applied betadine soaked gauze to site, covered with dry gauze, then wrapped with kerlex and FILOMENA wrap to hold dressing in place. Pt also c/o tender area to right outer aspect of foot that was red and tender to touch. Extra dry gauze applied to area prior to wrapping to provide additional cushion. Will reassess when pt returns in 2 days and notify MD if needed.
[2021-10-03 12:13] LABS: Erythrocyte Sedimentation Rate 73 mm/hr (0-30)
== END 2021-10-03 11:15 | disposition home or self-care (01) ==
LOC: INF 08:24
PROVIDERS: Visit Provider Podiatrist
DX: L03.115 Cellulitis of right lower limb (principal); M86.9 Osteomyelitis, unspecified; Z89.421 Acquired absence of other right toe(s)
CPT/HCPCS: 80048; 85025; 85651; 86140; G0463

== ENCOUNTER 2021-10-05 08:13 | Outpatient (CLI) | payer MEDICAID, SELFPAY | END 2021-10-05 11:05 | disposition home or self-care (01) | LOC: INF 08:13 | PROVIDERS: PCP Nurse Practitioner Family; Visit Provider Podiatrist | DX: L03.115 Cellulitis of right lower limb (principal); M86.9 Osteomyelitis, unspecified; Z89.421 Acquired absence of other right toe(s) | CPT/HCPCS: G0463 ==

== ENCOUNTER 2021-10-07 08:22 | Outpatient (CLI) | payer MEDICAID, SELFPAY | END 2021-10-07 11:09 | disposition home or self-care (01) | LOC: INF 08:23 | PROVIDERS: Visit Provider Podiatrist | DX: L03.115 Cellulitis of right lower limb (principal); M86.9 Osteomyelitis, unspecified; Z89.421 Acquired absence of other right toe(s) | CPT/HCPCS: G0463 ==

== ENCOUNTER 2021-10-10 08:08 | Outpatient (CLI) | payer MEDICAID, SELFPAY ==
[2021-10-10 10:50] VITALS: BMI 41.3
--- NOTE | 2021-10-10 10:58 | PC.NURSE ---
1058-collected labs via peripheral stick.
[2021-10-10 11:13] LABS: Basophils # 0.1 K/mm3 (0-0.2); Basophils % 0.6 % (0.1-2.0); Eosinophils # 0.4 K/mm3 (0.0-0.4); Eosinophils % 3.3 % (0.1-12.0); Hematocrit 41.4 % (37.0-47.0); Hemoglobin 12.9 g/dL (12.2-16.2); Lymphocytes # 3.1 K/mm3 (0.7-4.5); Lymphocytes % 24.1 % (10-50); Mean Corpuscular HGB Conc 31.2 g/dL (31.8-35.4); Mean Corpuscular Hemoglobin 27.4 pg (27.0-31.2); Mean Corpuscular Volume 87.9 fl (81-99); Mean Platelet Volume 8.3 fl (7.4-10.4); Monocytes # 0.8 K/mm3 (0.1-1.0); Monocytes % 5.8 % (1.7-9.3); Neutrophils # 8.6 K/mm3 (1.8-7.8); Neutrophils % 66.2 % (37.0-80.0); Platelet Count 353 K/mm3 (142-424); Red Blood Count 4.71 M/mm3 (4.20-5.40); Red Cell Distribution Width 14.5 % (11.5-17.5)
[2021-10-10 11:18] LABS: Anion Gap 8.8 mEq/L (5-15); Blood Urea Nitrogen 17 mg/dl (7-17); Calcium 8.6 mg/dl (8.4-10.2); Carbon Dioxide 32 mmol/L (22.0-30.0); Chloride 104 mmol/L (98-107); Creatinine Clearance Estimated 50 mL/min (50-200); Estimated Glomerular Filt Rate 63 ml/min (>60); GFR (African American) 77 ML/MIN (>60); Glucose 119 mg/dl (74-100); Potassium 3.8 mmoL/L (3.5-5.1); Sodium 141 mmol/L (136-145)
[2021-10-10 11:23] LABS: C-Reactive Protein 10.8 mg/L (0-4)
[2021-10-10 12:26] LABS: Erythrocyte Sedimentation Rate 58 mm/hr (0-30)
== END 2021-10-10 11:00 | disposition home or self-care (01) ==
LOC: INF 08:08
PROVIDERS: Visit Provider Podiatrist
DX: L03.115 Cellulitis of right lower limb (principal); M86.9 Osteomyelitis, unspecified; Z89.421 Acquired absence of other right toe(s); Z48.01 Encounter for change or removal of surgical wound dressing
CPT/HCPCS: 80048; 85025; 85651; 86140; G0463

== ENCOUNTER 2021-10-12 08:08 | Outpatient (CLI) | payer MEDICAID, SELFPAY ==
--- NOTE | 2021-10-12 11:59 | PC.NURSE ---
1050 - REMOVED DRESSING FROM PT'S RIGHT FOOT AND CLEANED AREA WHERE AMPUTATION OF 2ND TOE TOOK PLACE. STERI STRIPS PRESENT. APPLIED BETADINE SOAKED GAUZE FOLLOWED BY DRY GAUZE, KERLEX, AND FILOMENA WRAP.
== END 2021-10-12 11:00 | disposition home or self-care (01) ==
LOC: INF 08:08
PROVIDERS: Visit Provider Internal Medicine Medical Oncology
DX: L03.115 Cellulitis of right lower limb (principal); M86.9 Osteomyelitis, unspecified; Z89.421 Acquired absence of other right toe(s)
CPT/HCPCS: G0463

== ENCOUNTER 2021-10-14 08:20 | Outpatient (CLI) | payer MEDICAID, SELFPAY | END 2021-10-14 10:48 | disposition home or self-care (01) | LOC: INF 08:21 | PROVIDERS: Visit Provider Podiatrist | DX: L03.115 Cellulitis of right lower limb (principal); M86.9 Osteomyelitis, unspecified; Z89.421 Acquired absence of other right toe(s) | CPT/HCPCS: G0463 ==

== ENCOUNTER 2021-10-17 08:11 | Outpatient (CLI) | payer MEDICAID, SELFPAY ==
[2021-10-17 10:33] VITALS: BMI 42.7
--- NOTE | 2021-10-17 10:46 | PC.NURSE ---
1040 Labs drawn per MD order per L AC x1 stick. Patient has appointment with Dr. Candelaria this am.
[2021-10-17 10:58] LABS: Basophils # 0.1 K/mm3 (0-0.2); Basophils % 0.6 % (0.1-2.0); Eosinophils # 0.3 K/mm3 (0.0-0.4); Eosinophils % 2.7 % (0.1-12.0); Hematocrit 44.1 % (37.0-47.0); Hemoglobin 13.7 g/dL (12.2-16.2); Lymphocytes # 2.6 K/mm3 (0.7-4.5); Lymphocytes % 23.5 % (10-50); Mean Corpuscular HGB Conc 31.2 g/dL (31.8-35.4); Mean Corpuscular Hemoglobin 27.8 pg (27.0-31.2); Mean Corpuscular Volume 89.1 fl (81-99); Mean Platelet Volume 7.9 fl (7.4-10.4); Monocytes # 0.6 K/mm3 (0.1-1.0); Monocytes % 5.6 % (1.7-9.3); Neutrophils # 7.6 K/mm3 (1.8-7.8); Neutrophils % 67.7 % (37.0-80.0); Platelet Count 370 K/mm3 (142-424); Red Blood Count 4.95 M/mm3 (4.20-5.40); Red Cell Distribution Width 14.6 % (11.5-17.5); White Blood Count 11.2 K/mm3 (4.8-10.8)
[2021-10-17 11:03] LABS: Chloride 103 mmol/L (98-107); Sodium 138 mmol/L (136-145)
[2021-10-17 11:04] LABS: Potassium 3.7 mmoL/L (3.5-5.1)
[2021-10-17 11:06] LABS: Blood Urea Nitrogen 14 mg/dl (7-17); Creatinine Clearance Estimated 48 mL/min (50-200); Estimated Glomerular Filt Rate 73 ml/min (>60); GFR (African American) 88 ML/MIN (>60)
[2021-10-17 11:07] LABS: Anion Gap 7.7 mEq/L (5-15); Calcium 8.3 mg/dl (8.4-10.2); Carbon Dioxide 31 mmol/L (22.0-30.0); Glucose 121 mg/dl (74-100)
[2021-10-17 11:15] LABS: C-Reactive Protein 7.2 mg/L (0-4)
[2021-10-17 11:30] LABS: Erythrocyte Sedimentation Rate 37 mm/hr (0-30)
== END 2021-10-17 11:00 | disposition home or self-care (01) ==
LOC: INF 08:11
PROVIDERS: Visit Provider Podiatrist
DX: L03.115 Cellulitis of right lower limb (principal); M86.9 Osteomyelitis, unspecified; Z89.421 Acquired absence of other right toe(s)
CPT/HCPCS: 80048; 85025; 85651; 86140

== ENCOUNTER → 2021-10-19 08:17 | Outpatient (CLI) | payer MEDICAID, SELFPAY ==
--- NOTE | 2021-10-19 11:12 | XR_ITS ---
FINAL REPORT CLINICAL HISTORY: status post amputation COMPARISON: September 08, 2021 FINDINGS: RIGHT FOOT: Three views of the right foot were obtained. There are postoperative changes from amputation of the 2nd and 3rd digits. There is no acute fracture or dislocation. Mild degenerative changes are present. There is a plantar calcaneal spur. Vascular calcifications are seen. IMPRESSION: Postoperative changes from amputation of the 2nd and 3rd digits. Reviewed, Interpreted and Dictated by Xavi Keating III, MD Transcribed by Ac Ronquillo Authenticated by Xavi Keating III, MD on 10/19/2021 12:30:03 PM [facility]
== END ==
PROVIDERS: PCP Nurse Practitioner Family; Visit Provider Podiatrist
DX: M79.671 Pain in right foot (principal); Z98.890 Other specified postprocedural states
CPT/HCPCS: 73630